=== PATIENT | female | born 1995 | race Caucasian/White ===

== ENCOUNTER 2020-06-17 15:01 | Emergency (ER) | payer MEDICAID, SELFPAY ==
--- NOTE | ~2020-06-17 | US_ITS ---
EXAMINATION: ULTRASOUND PELVIC, COMPLETE CLINICAL INFORMATION: Right upper quadrant pain. Suprapubic tenderness. COMPARISON: None. TECHNIQUE: Transvaginal: Used to better visualize pelvic structures Transabdominal: Not adequate for visualization Spectral Doppler and color Doppler exam was utilized. LMP: 05/08/2020. Gestational age by LMP is 5 weeks 5 days. KELLY 02/12/2021 FINDINGS: UTERUS: There is an intrauterine gestational sac. There is a yolk sac present but no pole. Mean gestational sac diameter 0.6 cm. This correlates to dating of 5 weeks 1 day. There is likely normal variant of arcuate uterus. Uterus measures 8.3 x 4.3 x 5.4 cm. ADNEXA: Ovarian vascularity:Doppler demonstrates both arterial and venous vascular flow in the right and left ovary. No evidence of ovarian torsion. Right Ovary: Corpus luteum cyst in the right ovary measuring 1.3 cm. The right ovary measures 3.7 x 2.3 x 2.1 cm Left Ovary: 1.6 x 1.7 x 1.4 cm Cul-de-sac: No Fluid US/US OB transvaginal IMPRESSION: There is an intrauterine gestational sac with yolk sac but no pole seen. Mean gestational sac 0.6 cm correlates to dating of 5 weeks 1 day. Consider follow-up ultrasound in 2-3 weeks.
--- NOTE | ~2020-06-17 | US_ITS ---
EXAMINATION: ULTRASOUND PELVIC, COMPLETE CLINICAL INFORMATION: Right upper quadrant pain. Suprapubic tenderness. COMPARISON: None. TECHNIQUE: Transvaginal: Used to better visualize pelvic structures Transabdominal: Not adequate for visualization Spectral Doppler and color Doppler exam was utilized. LMP: 05/08/2020. Gestational age by LMP is 5 weeks 5 days. KELLY 02/12/2021 FINDINGS: UTERUS: There is an intrauterine gestational sac. There is a yolk sac present but no pole. Mean gestational sac diameter 0.6 cm. This correlates to dating of 5 weeks 1 day. There is likely normal variant of arcuate uterus. Uterus measures 8.3 x 4.3 x 5.4 cm. ADNEXA: Ovarian vascularity:Doppler demonstrates both arterial and venous vascular flow in the right and left ovary. No evidence of ovarian torsion. Right Ovary: Corpus luteum cyst in the right ovary measuring 1.3 cm. The right ovary measures 3.7 x 2.3 x 2.1 cm Left Ovary: 1.6 x 1.7 x 1.4 cm Cul-de-sac: No Fluid US/US OB <= 14 weeks fetus IMPRESSION: There is an intrauterine gestational sac with yolk sac but no pole seen. Mean gestational sac 0.6 cm correlates to dating of 5 weeks 1 day. Consider follow-up ultrasound in 2-3 weeks.
[2020-06-17 16:31] VITALS: BP 106/58; PULSE 64; RESP 18; TEMP 36.9; O2SAT 99; BMI 26.5
[2020-06-17 18:26] LABS: MANUAL DIFF FLAG NO
[2020-06-17 18:30] LABS: Basophils Absolute Auto 0.1 X10*3/uL (0.0-0.2); Basophils Percent Auto 0.6 % (0-2); Eosinophils Absolute Auto 0.1 X10*3/uL (0.0-0.4); Eosinophils Percent Auto 0.9 % (0-4); Hematocrit 40.6 % (37-47); Hemoglobin 13.7 g/dl (12.0-16.0); Imm Gran Abs Auto 0.02 X10*3/uL (0.00-0.03); Imm Gran Pct Auto 0.2 % (0.0-0.4); Lymphocytes Absolute Auto 2.6 X10*3/uL (1.2-4.9); Lymphocytes Percent Auto 30.9 % (20-40); Mean Corpuscular HGB Conc 33.7 g/dl (31.0-35.0); Mean Corpuscular Hemoglobin 31.5 pg (27.0-33.0); Mean Corpuscular Volume 93.3 fL (80-98); Mean Platelet Volume 10.3 fL (9.4-12.3); Monocytes Absolute Auto 0.6 X10*3/uL (0.1-1.2); Monocytes Percent Auto 7.2 % (2-11); Neutrophils Absolute Auto 5.1 X10*3/uL (2.0-8.3); Neutrophils Percent Auto 60.2 % (45-73); Platelet Count 292 X10*3/uL (160-400); Red Blood Count 4.35 X10*6/uL (4.20-5.50); Red Cell Distribution Width 13.1 % (11.0-16.0); White Blood Count 8.5 X10*3/uL (4.8-10.8)
[2020-06-17 18:31] LABS: Glucose Urine UA NEG (NEG); Leukocyte Esterase Urine NEG (NEG); Nitrite Urine NEG (NEG); PH 5.5 (5.0-8.0); Specific Gravity - Urine >= 1.030 (1.005-1.025); Urine Blood NEG (NEG); Urine Ketones NEG (NEG); Urine Protein NEG (NEG-TRACE)
[2020-06-17 18:32] LABS: Appearance Urine CLEAR; Color Urine YELLOW; UPreg QC Valid YES; Urine Pregnancy POSITIVE (NEGATIVE)
[2020-06-17 18:47] LABS: Anion Gap 12 (12-20); Blood Urea Nitrogen 12 mg/dL (9-16); Calcium 8.9 mg/dL (8.4-10.2); Carbon Dioxide 24 mmol/L (22-29); Chloride 104 mmol/L (96-108); Creatinine Clr Calc Pharmacy 121.6; Estimated Glomerular Filt Rate > 60; Glucose Random 85 mg/dL (60-115); Potassium 3.9 mmol/L (3.3-5.1); Sodium 136 mmol/L (135-145)
--- NOTE | 2020-06-17 21:41 | ED_ITS ---
HPI - Female Genitourinary General Chief complaint: Urogenital-Female Stated complaint: ABD PAIN Time Seen by Provider: 06/17/20 21:23 Source: patient Mode of arrival: ambulatory Limitations: no limitations History of Present Illness HPI Narrative: 25-year-old female who presents emergency department for evaluation lower abdominal pain and vaginal bleeding. The patient is a , LMP 05/08/2020 who states that her menstrual period was late. She checked a home test was positive. She states that on Monday, 4 days prior to evaluation, she noted some pinkish blood on the toilet paper after she urinated. She states that she has been experiencing lower abdominal pain for approximately 3 weeks. She describes this as an intermittent, cramping/dull pain which is mild to moderate in intensity. She points to her right lower quadrant and suprapubic area when asked to localize his pain. She states that she made an appointment with the [facility] for OBGYN care and they advised her to go to the emergency department since she was having abdominal pain. In the emergency department she states that she is having pain but it is mild in intensity. She denies any vaginal bleeding or vaginal discharge. The patient states that she had 1 miscarriage at 5 months and that during her last which was 9 months prior, she was being monitored for hypertension but did not have preeclampsia. Related Data Allergies Allergy/AdvReac Type Severity Reaction Status Date / Time No Known Allergies Allergy Unverified 01/02/20 16:26 Review of Systems Review of Systems: Yes all other systems are reviewed and are negative PMFSH Past Medical History [facility] Narrative: G4, P2, LMP 05/08/2020, 5 weeks 5 days by dates, no chronic medical problems. The patient states that she occasionally smokes cigarettes, she denies alcohol use. She states she smokes marijuana daily. Social History Social History Advance Directives: No Advance Directives Information Provided: No Physical Exam Vital Signs: Vital Signs: Last Vital Signs Temp 98.4 F 06/17/20 16:31 Pulse 77 06/17/20 22:12 Resp 16 06/17/20 22:12 BP 115/77 06/17/20 22:12 Pulse Ox 99 06/17/20 22:12 Body Mass Index 26.5 Const: General: cooperative and healthy appearing Orientation/consciousness: oriented to person and oriented to place Limitations: no limitations HENMT: Head: Yes normal to inspection, Yes normocephalic and Yes atraumatic Ears: external ears normal General nose exam: Normal external nose present Face and sinus: Yes normal facial exam Mouth: Normal oral and palatal mucosa present Throat: Yes posterior oropharynx normal Eyes: Periorbital: periorbital findings normal Eyelids: Yes eyelids normal Conjunctivae: conjunctivae normal Sclerae: sclerae normal Corneas: corne as normal Pupils: Equal, round and reactive pupils present Direct Ophthalmoscopy: normal light reflex Neck: Neck: Yes full ROM, Yes no lymphadenopathy, Yes no meningeal signs, Yes trachea midline and Yes supple Chest: Chest palpation & inspection: normal inspection of the chest and normal palpation of entire chest wall Resp: Effort & Inspection: normal respiratory effort and able to speak in complete sentences Auscultation: clear to auscultation bilaterally Cardio: Rate: regular rate Rhythm: regular rhythm Heart sounds: S1 normal heart sound present, S2 normal heart sound present and no murmurs GI: Inspection: Yes normal to inspection Palpation (GI): Soft to palpation, Tenderness to palpation present (GI) in the RLQ (Mild) and suprapubicly (Mild), no guarding, not rigid and No hepatosplenomegaly present : General: Yes no CVA tenderness Back/Spine/Pelvis: Back: no CVA tenderness Cervical Spine: normal cervical lordosis Thoracic/Lumbar Spine: thoracic and lumbar spine normal to inspection Skin: Lesions: no lesions Rashes: no rashes Wounds: no wounds Neuro: General: oriented to person, oriented to place and no meningeal signs Cranial nerves: Yes Equal, round and reactive pupils present Cognition (Neuro): normal cognition Motor exam (neuro): 5/5 motor strength present throughout Extrem: General: Yes normal to inspection and Yes full ROM Psych: Appearance: well kempt Mental Status: mental status grossly normal Speech and movement: Normal speech and movement present Affect: normal affect Attitude: cooperative Thought process: Normal thought process present Thought content: Normal thought content present Course Course Course Narrative: 25-year-old female, G4, P3, LMP 05/08/2020, 5 weeks, 5 days by dates, who presents emergency department for evaluation of lower abdominal pain x3 weeks and possible brief episode of vaginal bleeding 4 days prior. Examination did reveal mild suprapubic and left lower quadrant tenderness. Laboratory evaluation revealed normal CBC and comprehensive metabolic panel. Urine test was positive. Urinalysis was negative. I did add a quantitative beta HCG to the patient's labs. Given her symptoms, I did order a ultrasound to rule out ectopic on this patient. 2243: Patient's laboratory evaluation was unremarkable. The patient's urine test was positive and her quantitative beta-hCG was 2879. The patient's ultrasound did reveal a yolk sac in the uterus with no evidence of an ectopic . I did discuss these findings with the patient. The patient was discharged home with printed instructions on early . She was advised to follow-up with the [facility] and return to the emergency department if her symptoms get worse or she develops any symptoms that are concerning to her. MDM - Female Genitourinary Lab Data Result diagrams: 06/17/20 18:18 06/17/20 18:07 Labs: Lab Results 06/17/20 06/17/20 06/17/20 Range/Units 18:07 18:07 18:18 WBC 8.5 (4.8-10.8) X10*3/uL RBC 4.35 (4.20-5.50) X10*6/uL Hgb 13.7 (12.0-16.0) g/dl Hct 40.6 (37-47) % MCV 93.3 (80-98) fL MCH 31.5 (27.0-33.0) pg MCHC 33.7 (31.0-35.0) g/dl RDW 13.1 (11.0-16.0) % Plt Count 292 (160-400) X10*3/uL MPV 10.3 (9.4-12.3) fL Immature Gran % (Auto) 0.2 (0.0-0.4) % Neut % (Auto) 60.2 (45-73) % Lymph % (Auto) 30.9 (20-40) % [place] % (Auto) 7.2 (2-11) % Eos % (Auto) 0.9 (0-4) % Baso % (Auto) 0.6 (0-2) % Lymph # (Auto) 2.6 (1.2-4.9) X10*3/uL Payette # (Auto) 0.6 (0.1-1.2) X10*3/uL Eos # (Auto) 0.1 (0.0-0.4) X10*3/uL Baso # (Auto) 0.1 (0.0-0.2) X10*3/uL Abs Immat Gran (auto) 0.02 (0.00-0.03) X10*3/uL Absolute Neuts (auto) 5.1 (2.0-8.3) X10*3/uL Absolute Nucleated RBC 0.000 (0.0-0.012) X10*3/uL Nucleated RBC % (auto) 0.0 (0.0-0.2) /100WBC Hold Blue Top SEE NOTE Sodium 136 (135-145) mmol/L Potassium 3.9 (3.3-5.1) mmol/L Chloride 104 (96-108) mmol/L Carbon Dioxide 24 (22-29) mmol/L Anion Gap 12 (12-20) BUN 12 (9-16) mg/dL Creatinine 0.66 (0.5-1.4) mg/dL Estim Creat Clear Calc 121.6 Estimated GFR > 60 Random Glucose 85 (60-115) mg/dL Calcium 8.9 (8.4-10.2) mg/dL Beta HCG, Quant 2879 mIU/mL Urine Color Urine Appearance Urine pH (5.0-8.0) Ur Specific [place] (1.005-1.025) Urine Protein (NEG-TRACE) MG/DL Urine Glucose (UA) (NEG) MG/DL Urine Ketones (NEG) MG/DL Urine Blood (NEG) Urine Nitrite (NEG) Ur Leukocyte Esterase (NEG) Urine Test (NEGATIVE) 06/17/20 06/17/20 Range/Units 18:18 18:18 WBC (4.8-10.8) X10*3/uL RBC (4.20-5.50) X10*6/uL Hgb (12.0-16.0) g/dl Hct (37-47) % MCV (80-98) fL MCH (27.0-33.0) pg MCHC (31.0-35.0) g/dl RDW (11.0-16.0) % Plt Count (160-400) X10*3/uL MPV (9.4-12.3) fL Immature Gran % (Auto) (0.0-0.4) % Neut % (Auto) (45-73) % Lymph % (Auto) (20-40) % [place] % (Auto) (2-11) % Eos % (Auto) (0-4) % Baso % (Auto) (0-2) % Lymph # (Auto) (1.2-4.9) X10*3/uL Payette # (Auto) (0.1-1.2) X10*3/uL Eos # (Auto) (0.0-0.4) X10*3/uL Baso # (Auto) (0.0-0.2) X10*3/uL Abs Immat Gran (auto) (0.00-0.03) X10*3/uL Absolute Neuts (auto) (2.0-8.3) X10*3/uL Absolute Nucleated RBC (0.0-0.012) X10*3/uL Nucleated RBC % (auto) (0.0-0.2) /100WBC Hold Blue Top Sodium (135-145) mmol/L Potassium (3.3-5.1) mmol/L Chloride (96-108) mmol/L Carbon Dioxide (22-29) mmol/L Anion Gap (12-20) BUN (9-16) mg/dL Creatinine (0.5-1.4) mg/dL Estim Creat Clear Calc Estimated GFR Random Glucose (60-115) mg/dL Calcium (8.4-10.2) mg/dL Beta HCG, Quant mIU/mL Urine Color YELLOW Urine Appearance CLEAR Urine pH 5.5 (5.0-8.0) Ur Specific [place] >= 1.030 H (1.005-1.025) Urine Protein NEG (NEG-TRACE) MG/DL Urine Glucose (UA) NEG (NEG) MG/DL Urine Ketones NEG (NEG) MG/DL Urine Blood NEG (NEG) Urine Nitrite NEG (NEG) Ur Leukocyte Esterase NEG (NEG) Urine Test POSITIVE H (NEGATIVE)
[2020-06-17 22:11] LABS: HCG Quantitative 2879 mIU/mL
[2020-06-17 22:12] VITALS: BP 115/77; PULSE 77; RESP 16; O2SAT 99
== END 2020-06-17 22:50 | disposition home or self-care (01) ==
PROVIDERS: Emergency Provider Emergency Medicine Emergency Medical Services
DX: O26.91 Pregnancy related conditions, unspecified, first trimester (principal); Z3A.01 Less than 8 weeks gestation of pregnancy
CPT/HCPCS: 36415; 76801; 76817; 80048; 81003; 81025; 84702; 85025; 99283; 99284

== ENCOUNTER 2022-08-18 12:48 | Outpatient (REF) | payer MEDICAID, SELFPAY ==
--- NOTE | ~2022-08-18 | XR_ITS ---
EXAMINATION: XR CHEST CLINICAL INFORMATION: Posterior chest pain COMPARISON: None available. TECHNIQUE: 2 views of the chest were obtained. FINDINGS: No significant abnormality is noted involving the heart, lungs, mediastinum, bony thorax or soft tissues. XR/XR chest 2V IMPRESSION: Unremarkable examination.
== END 2022-08-18 12:49 | disposition home or self-care (01) ==
LOC: HO.HHCX 12:48
PROVIDERS: Referring Provider Emergency Medicine; Visit Provider Emergency Medicine
DX: R07.89 Other chest pain (principal)
CPT/HCPCS: 71046

== ENCOUNTER 2022-09-30 15:59 | Outpatient (REF) | payer MEDICAID, SELFPAY ==
--- NOTE | ~2022-09-30 | XR_ITS ---
EXAMINATION: XR HAND, RIGHT CLINICAL INFORMATION: Pain with injury. COMPARISON: September 27, 2015 TECHNIQUE: PA, lateral, and oblique views of the right hand. FINDINGS: There is a nondisplaced linear fracture through the right fifth metacarpal bone which is not intra-articular. There is associated soft tissue swelling seen. No dislocation is evident. Joint spaces are maintained. No significant degenerative change is seen. XR/XR hand RT min 3V IMPRESSION: Nondisplaced oblique fracture right fifth metacarpal.
== END 2022-09-30 16:00 | disposition home or self-care (01) ==
LOC: HO.HHCX 15:59
PROVIDERS: Visit Provider Registered Nurse
DX: M79.641 Pain in right hand (principal)
CPT/HCPCS: 73130

== ENCOUNTER 2022-10-11 13:14 | Outpatient (REF) | payer MEDICAID, SELFPAY ==
--- NOTE | ~2022-10-11 | US_ITS ---
EXAMINATION: US DIAGNOSTIC ULTRASOUND BREAST, BILATERAL CLINICAL INFORMATION: 27-year-old with focal dermatologic finding lower inner left breast and lower inner right breast, respectively. No prior breast imaging. COMPARISON: None available. TECHNIQUE: Ultrasound of both breasts is targeted to the areas of clinical concern. Grayscale imaging and color Doppler are performed without and with harmonics. Patient is able to point to the areas of concern at time of imaging. FINDINGS: Right: There is an incidental simple cyst under 5 mm, 3:00 position 7 cm from nipple. There is no solid mass or architectural abnormality. No intradermal lesion, skin thickening, or edema tracking in soft tissue planes. No hyperemia. Left: There is a small oval hypoechoic area 7:00 position 8 cm from nipple corresponding to the clinical concern. The overall dimensions are 4 x 3 mm. There is no subdermal extension. No associated color flow. No edema tracking in soft tissue planes. No breast cystic or solid mass or architectural abnormality. Results and management options are discussed with the patient at time of visit. US/US breast LT limited IMPRESSION: Right: -Incidental simple cyst 3:00 position under 5 mm. -No intradermal lesion demonstrated. Left: -Small oval intradermal lesion at site of clinical concern measuring approximately 4 x 3 mm possibly sebaceous cyst. No surrounding hyperemia or subdermal extension. ASSESSMENT: BI-RADS 2: Benign RECOMMENDATION: Patient should be managed based on the clinical impression. If clinically indicated, further evaluation may be considered with surgical consult. Decision to proceed with biopsy should be based on clinical grounds and degree of clinical concern. This patient's information was entered into a reminder system with a target due date for their next mammogram.
== END 2022-10-11 13:15 | disposition home or self-care (01) ==
LOC: HO.MAMMO 13:14
PROVIDERS: PCP Emergency Medicine; Visit Provider Emergency Medicine
DX: N63.25 Unspecified lump in the left breast, overlapping quadrants (principal); L98.8 Other specified disorders of the skin and subcutaneous tissue
CPT/HCPCS: 76642

== ENCOUNTER 2022-10-25 11:25 | Outpatient (REF) | payer MEDICAID, SELFPAY ==
--- NOTE | ~2022-10-25 | XR_ITS ---
EXAMINATION: XR HAND, RIGHT CLINICAL INFORMATION: Pain in unspecified hand COMPARISON: 09/30/2022 TECHNIQUE: PA, lateral, and oblique views of the right hand. FINDINGS: There is stable osseous alignment with callus formation in the oblique fracture in the fifth metacarpal bone. No intra-articular extension visualized. No new fractures. XR/XR hand RT min 3V IMPRESSION: Stable osseous alignment with callus formation in the oblique fracture in the fifth metacarpal bone.
== END 2022-10-25 11:26 | disposition home or self-care (01) ==
LOC: HO.HOSX 11:25
PROVIDERS: Visit Provider Physician Assistant
DX: S62.356D Nondisplaced fracture of shaft of fifth metacarpal bone, right hand, subsequent encounter for fracture with routine healing (principal)
CPT/HCPCS: 73130; 99204

== ENCOUNTER 2022-10-25 11:27 | Outpatient (AMB) | payer MEDICAID, SELFPAY ==
--- NOTE | 2022-10-25 11:41 | A.OFFVIS_ITS ---
Intake Intake Visit Reasons: FC- Rt metacarpal Fx Intake Note: Celina is a 27 year old right hand dominant female who presents today for a fracture care appointment for her right metacarpal fx, DOI 09/28/22. Patient reports when she was upset she hit the wall and she felt like she hit concrete or metal. She states that it feels sore but she is able to move her hand normally, also when she accidentally hits her right hand it causes her a lot of pain. Having off and on tingling. Allergies No Known Allergies Allergy (Verified 10/25/22 11:46) HPI FC- Rt metacarpal Fx HPI Details 27-year-old right hand dominant female who presents in the office today, as a new patient, for an evaluation of right hand pain. The patient reports on 09/28/2022 she was upset and hit a wall. She states she felt that she hit concrete or metal. She reports it is sore, but she is able to move her hand normally. She reports it has caused her a lot of pain. She confirms intermittent tingling. [facility] Social History (Updated 10/25/22 @ 11:47 by Kanika Eugene) Alcohol intake: former Patient Tobacco Use Status: Former Tobacco user Current occupational status: unemployed Current occupation: right hand dominant Review of Systems Const All systems reviewed & are unremarkable except as noted in HPI and below Physical Exam Const General: cooperative, healthy appearing, comfortable, no acute distress, well developed and alert Orientation/consciousness: patient oriented x3 HEENT Head: Yes normal to inspection, Yes normocephalic and Yes atraumatic Eyes General: appearance normal, both eyes and all related structures Resp Effort & Inspection: normal respiratory effort and able to speak in complete sentences Cardio Rate: regular rate Peripheral pulses: Peripheral pulses 2+ throughout GI Palpation (GI): Soft to palpation Skin Lesions: no lesions Rashes: no rashes Neuro General: patient oriented x3 Extrem Other: Right hand: Normal to inspection. No ecchymosis, erythema, or edema. Able to perform full finger flexion, extension, abduction, adduction, finger cross, okay sign, and thumbs up without deficit. Able to make a closed fist. Slight tenderness to palpation over the shaft of the 5th metacarpal. Sensation intact. Capillary refill is brisk. Radial pulse intact. Office Procedures Fracture Care Fracture Billing Code: Fracture Billing Code Assessment & Plan Assessment & Plan (1) Nondisp fx shaft fifth metacarpal bone right hand w/routine heal: Code(s): S62.356D - Nondisplaced fracture of shaft of fifth metacarpal bone, right hand, subsequent encounter for fracture with routine healing Plan Ms. Vladislav Zimmerman is a 27-year-old right hand dominant female who presents in the office today, as a new patient, for an evaluation of right hand pain. The patient reports on 09/28/2022 she was upset and hit a wall. She states she felt that she hit concrete or metal. She reports it is sore, but she is able to move her hand normally. She reports it has caused her a lot of pain. She confirms intermittent tingling. I educated the patient the healing time of a hand fracture of 6-8 weeks. She should not lift weight above a cellphone or coffee cup. She will return to normal activities as tolerated. Follow up will be PRN, or sooner if needed. X-rays of the right hand which were obtained while in the office today and were reviewed by me, Emma Perez PA-C, revealed routine healing of the 5th metacarpal shaft fracture. Orders: Orders XR hand RT min 3V Today M79.643 - Pain in unspecified hand Patient Instructions: Scribed for Emma Perez PA-C by Melissa Reyes medical csr, on 10/25/2022 at 11:29 am, EST. Your attestation Coding Level of Care Code New Pt Level 4 (09284) Diagnoses Nondisp fx shaft fifth metacarpal bone right hand w/routine heal S62.356D CPT Codes Fracture Care - Fracture Billing Code: Fracture Billing Code ([id number])
== END 2022-10-25 12:09 | disposition home or self-care (01) ==
PROVIDERS: PCP Emergency Medicine; Visit Provider Physician Assistant
DX: S62.356A Nondisplaced fracture of shaft of fifth metacarpal bone, right hand, initial encounter for closed fracture (principal); W22.09XA Striking against other stationary object, initial encounter
CPT/HCPCS: 99204

== ENCOUNTER 2023-06-03 14:07 | Emergency (ER) | payer MEDICAID, SELFPAY ==
--- NOTE | ~2023-06-03 | XR_ITS ---
EXAMINATION: XR HAND/WRIST, LEFT CLINICAL INFORMATION: Pain COMPARISON: None TECHNIQUE: PA, lateral, and oblique views of the left hand and wrist. FINDINGS: The bones and soft tissues are normal. No fracture. Alignment is anatomic. Joint spaces are maintained. No erosions or soft tissue calcifications. XR/XR hand wrist LT IMPRESSION: No fracture or dislocation. No significant osseous changes to explain patient's pain symptoms.
[2023-06-03 14:41] VITALS: BP 126/54; PULSE 66; RESP 18; TEMP 36.1; O2SAT 100; BMI 28.8
--- NOTE | 2023-06-03 14:42 | ED_ITS ---
HPI - Extremity Injury (Upper) General Chief Complaint: Extremity Injury, Upper Stated Complaint: left hand pain Time Seen by Provider: 06/03/23 16:00 Source: patient, RN notes reviewed and old records reviewed History of Present Illness HPI narrative: 28-year-old female with no significant past medical history presenting to the ED complaining of acute on chronic left hand and wrist pain times a few months. States noted increasing swelling yesterday. Reports pain is worse at night and 1st thing in the morning with intermittent numbness/tingling. Denies known injury/trauma or fall, fever/chills. 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 complaint: injury to: left Related Data Previous Rx's Medication Instructions Recorded acetaminophen 500 mg tablet 500 mg PO Q6H PRN fever or pain 06/03/23 (Tylenol Extra Strength) #14 tabs naproxen 500 mg tablet 500 mg PO BID PRN pain 10 days #20 06/03/23 tabs Allergies Allergy/AdvReac Type Severity Reaction Status Date / Time No Known Allergies Allergy Verified 06/03/23 14:46 Review of Systems Review of Systems: Constitutional: No Fever, No Chills ENT/Mouth: No Ear Pain, No Nasal Congestion, No sore throat, No Rhinorrhea, No Swallowing Difficulty Cardiovascular: No Chest Pain, No SOB Respiratory: No Cough Gastrointestinal: No Nausea, No Vomiting, No Abdominal pain Musculoskeletal: + joint pain, No Myalgias, + Joint Swelling Skin: No Skin Lesions, No rash Neuro: No Weakness, No Numbness, + Paresthesias Yes all other systems are reviewed and are negative Constitutional: Constitutional: Reports as per [facility] Past Medical History Attestation statement: The following information was validated with the patient. Source: old records reviewed Social History Social History Alcohol intake: former Patient Tobacco Use Status: Former Tobacco user Current occupational status: unemployed Current occupation: right hand dominant Physical Exam Vital Signs: Vital Signs: Last Vital Signs Temp 97 F 06/03/23 14:41 Pulse 66 06/03/23 14:41 Resp 18 06/03/23 14:41 BP 126/54 L 06/03/23 14:41 Pulse Ox 100 06/03/23 14:41 O2 Del Method Room Air 06/03/23 14:41 BMI result Body Mass Index 28.8 Const: General: cooperative, healthy appearing and no acute distress Orientation/consciousness: patient oriented x3 Limitations: no limitations HEENT: Head: Yes normal to inspection and Yes atraumatic Ears: hearing grossly normal bilaterally General nose exam: Normal external nose present Face and sinus: Yes normal facial exam Eyes: General: appearance normal, both eyes and all related structures EOM: EOMs intact bilaterally Neck: Neck: Yes normal visual inspection and Yes no meningeal signs Resp: Effort & Inspection: normal respiratory effort and no respiratory distress Cardio: Rate: regular rate Skin: Rashes: no rashes Wounds: no wounds Neuro: General: patient oriented x3, tone normal and no meningeal signs Cranial nerves: Yes CN's II-XII intact bilaterally Gait exam (Neuro): Normal gait present Extrem: Other: Left hand/wrist without noted deformity. No erythema/warmth or crepitus. + diffusely tender to palpation greatest to ulnar aspect. Negative Phalen's and Tinel's sign. Neurovascularly intact. Full range of motion intact. No snuffbox tenderness General: Yes normal to inspection Course Course Course Narrative: RME: 28 year-old F w/no sig PMHx presenting to the ED c/o left hand pain x few months w/ swelling noted yesterday. Admits to intermittent numbness/tingling. Worse when sleeping. denies injury/fall, fever. 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 1610--XR hand wrist LT IMPRESSION: No fracture or dislocation. No significant osseous changes to explain patient's pain symptoms. Results discussed with patient including worrisome signs and symptoms and strict return precautions, and when to return to the emergency department. They verbalized understanding and feel safe for discharge at this time. Medical Decision Making Medical Decision Making MDM Narrative: 28-year-old female with no significant past medical history presenting to the ED complaining of acute on chronic left hand and wrist pain times a few months. On exam vital signs stable, NAD, nontoxic appearing. Concern for sprain vs occult fracture vs tendinopathy. No evidence of septic joint/arthritis. Plan: X-rays Please refer to course for remaining clinical decision making, interpretation of labs/imaging results, and discussions with consultants and/or family members. Differential Diagnosis Differential Diagnoses: The differential diagnosis associated with the pres entation includes As above Independent Interpretation I performed an independent interpretation of an: Plain X-Ray Radiology Impression Discussion of test interpretation with radiology: I have reviewed the radiologist's reading. External Record Review External record reviewed: Inpatient record, Office record, Outpatient record, Prior outpatient labs, Prior outpatient radiology, Primary care record and Outside ED record Tests considered The following testing was considered but not selected: As above Prescription Management I considered prescription management with: Pain Medication Discharge Plan Discharge Clinical Impression: Pain in left wrist Patient Disposition: Home, Self-Care Instructions: Wrist Injury (ED), Arthralgia (ED) Additional Instructions: Your x-ray is unremarkable Wear wrist splint as needed for comfort and stability Ice and elevate Naproxen as anti-inflammatory/pain medication, take with food In addition take Tylenol Follow-up with your doctor as well as Orthopedics as needed Prescriptions: New acetaminophen [Tylenol Extra Strength] 500 mg tablet 500 mg PO Q6H PRN (Reason: fever or pain) Qty: 14 0RF naproxen 500 mg tablet 500 mg PO BID PRN (Reason: pain) 10 Days Qty: 20 0RF Referrals: [facility] [facility] [Provider Group] (as needed) [facility] [Primary Care Provider] - 5 days Stand Alone Forms: Work/School Release Discharge Date/Time: 06/03/23 16:47
--- OUTSIDE RECORDS SUMMARY | 2023-06-03 16:23 | XMS_ITS | Continuity of Care Document ---
Author Name Unknown Organization [facility] Address [address] [place] [id number]- Care Team Providers Care All Source Analyst Name Role Phone Yvette MONROY, Wei Martin Primary Care Physician Encounter [facility] [place] Date(s): 10/15/20 - 11/19/[address] [address] Attending Physician: Not on Staff, Attending MD Allergies, Adverse Reactions, Alerts Substance Reaction Severity Status NKA Active Immunizations Given and Recorded Vaccine Date Status Refusal Reason Measles/Mumps/Rubella Virus Vaccine 1 09/26/19 Giv en Measles/Mumps/Rubella Virus Vaccine 09/08/13 Given tetanus/diphtheria/pertussis, acel(Tdap) 07/09/19 Given tetanus/diphtheria/pertussis, acel(Tdap) 07/02/13 Given influenza virus vaccine, inactivated 01/31/13 Give n 1Early/Late Reason: Other : na Medications aspirin 81 mg oral delayed release tablet 2 tablet = 162 mg, By Mouth, Daily, # 60 tablet, 7 Refills, Maintenance, 08/14/20 15:50:00 EDT, CR Tablet, [facility], Partial fill upon patient request if the prescription is fora schedule II opioid drug., 161, cm, 08/14/20 13:31... Start Date: 08/14/20 Status: Ordered doxylamine 25 mg oral tablet 1 tablet = 25 mg, By Mouth, Daily, PRN Insomnia, take 1-2 tablet 15-30min before bed, # 30 tablet, 0 Refills, Acute 11/30/20 9:52:00 EDT, 10/29/20 9:52:00 EDT, Tablet, [facility],do not substitute diphenhydramine, 161, cm, ... Start Date: 10/29/20 Stop Date: 11/30/20 Status: Ordered Multivitamins with Folic Acid 1 mg oral tablet 1 tablet, By Mouth, Daily, # 90 tablet, 3 Refills, Maintenance, 07/08/20 17:11:00 EDT, Tablet, [facility], Partial fill upon patient request if the prescription is for a schedule II opioid drug., 1 tablet By Mouth Daily, 160, cm, 0... Start Date: 07/08/20 Status: Ordered Problem List Condition Effective Dates Status Health Status Inform ant H/O Anxiety and depression(C onfirmed) 1, 2 Active H/O Asthma(Confirmed) 3 Active Vaginal bleeding in (Confirmed) Active Depression affecting (Confirmed) Active Difficulty sleeping(Confirmed) Active Marijuana use(Confirmed) Active H/O delivery(Confirmed) 2011 Active Request for sterilization(Confirmed) Active Susceptible to varicella (no n-immune), currently (Confirmed) Active 1Currently established with counseling once weekly. Currently feels stable, not on medications. 2Pt reports at this OBI visit that she has hx of MHS for anxiety and depression but is not longer engaged at present. 3not managed at present 4History of twin delivery/IUFD at 20+2, TTTS. Social History Social History Type Response Smoking Status Former smoker, quit more than 30 days ago; Other: States quit 1-2 years ago prior to last ; entered on: 07/08/20 Sex
--- OUTSIDE RECORDS SUMMARY | 2023-06-03 16:23 | XMS_ITS | Continuity of Care Document ---
Author Name Unknown Organization [facility] Address [address] [place] [address]- Care Team Providers Care Rubble Placer Name Role Phone Yvette MONROY, Wei Martin Primary Care Physician [place] [facility] [place] Date(s): 10/17/20 - 11/22/[address] [address] Attending Physician: Avril Thompson MD Admitting Physician: Avril Thompson MD Referring Physician: Jamia Lebron NP Allergies, Adverse Reactions, Alerts Substance Reaction Severity [...] Refills, Maintenance, 08/14/20 15:50:00 EDT, CR Tablet, [facility], Partial fill upon patient request if the prescription is fora schedule II opioid drug., 161, cm, 08/14/20 13:31... Start Date: 08/14/20 Status: Ordered doxylamine 25 mg oral tablet 1 tablet = 25 mg, By Mouth, Daily, PRN Insomnia, take 1-2 tablet 15-30min before bed, # 30 tablet, 0 Refills, Acute 11/30/20 9:52:00 EDT, 10/29/20 9:52:00 EDT, Tablet, [facility],do not substitute diphenhydramine, 161, cm, ... Start Date: 10/29/20 Stop Date: 11/30/20 Status: Ordered Multivitamins with Folic Acid 1 mg oral tablet 1 tablet, By Mouth, Daily, # 90 tablet, 3 Refills, Maintenance, 07/08/20 17:11:00 EDT, Tablet, [facility], Partial fill upon patient request if [...]
--- OUTSIDE RECORDS SUMMARY | 2023-06-03 16:23 | XMS_ITS | Continuity of Care Document ---
Author Name Unknown Organization [facility] Address [address] [place] [address]- Care Team Providers Care Vulcanizer Operator Name Role Phone MaríafloydMargo chapa DO Primary Care Physician [place] [facility] [place]24/[place] - 10/30/[address] [address] [facility] Attending Physician: Jaycob PATE, Dutch Gonzalez Referring Physician: Will ZHANG, SHEET ROCK TAPER HELPER, Ana Archuleta Allergies, Adverse Reactions, Alerts Substance Reaction Severity Status NKA Active Immunizations Given and Recorded Vaccine Date Status Refusal Reason Measles/Mumps/Rubella Virus Vaccine 1 09/26/19 Giv en Measles/Mumps/Rubella Virus Vaccine 09/08/13 Given tetanus/diphtheria/pertussis, acel(Tdap) 07/09/19 Given tetanus/diphtheria/pertussis, acel(Tdap) 07/02/13 Given influenza virus vaccine, inactivated 01/31/13 Give n 1Early/Late Reason: Other : na Medications acetaminophen 325 mg oral tablet 650 mg, By Mouth, Every 4 hours, PRN, (1-3), may give 325mg per patient preference and re-dose [id number] within 4 hours, if needed. Patient should only receive a total of 650mg of Acetaminophen every 4 hours., Refills 0, Maintenance, Pain , Mild, 0... Start Date: 09/26/19 Status: Ordered FREE STYLE LITE GLUCOSE METER FREE STYLE LITE GLUCOSE METER, See Instructions, # 1 each, Refills 0, Tot. Refills 0, Maintenance, ONE EACH;monitor glucose during , 07/09/19 15:54:00 EDT, Compound, 160, cm, 07/09/19 14:25:00 EDT, Height Start Date: 07/09/19 Status: Ordered FREE STYLE LITE LANCETS FREE STYLE LITE LANCETS, See Instructions, # 200 each, Refills 0, Tot. Refills 0, Maintenance, ICD -10 Code E119; glucose monitoring 4 times per day, TEST BLOOD GLUCOSE QID FOR GESTATIONAL DIABETES, 07/09/19 15:54:00 EDT, Compound, 160, cm, 07/09/19 1... Start Date: 07/09/19 Status: Ordered FREE STYLE LITE STRIPS FREE STYLE LITE STRIPS, See Instructions, # 200 each, Refills 0, Tot. Refills 0, Maintenance, ICD-10 CODE: E119 GLUCOSE CHECK (4) FOUR TIMES PER DAY, 07/09/19 15:54:00 EDT, Compound, 160, cm, 07/09/19 14:25:00 EDT, Height Start Date: 07/09/19 Status: Ordered ibuprofen 800 mg oral tablet 800 mg, 1, tablet, By Mouth, Every 8 hours, PRN, (4-6), may give 400mg per patient preference and re-dose with 400mg within 8 hours if needed. Patient should only receive a total of 800mg of Ibuprofen every 8 hours., Refills 0, Maintenance, Pain , M... Start Date: 09/26/19 Status: Ordered Multivitamins with Folic Acid 1 mg oral tablet 1 tablet, By Mouth, Daily, # 90 tablet, 3 Refills, Maintenance, Tablet, 1 tablet By Mouth Daily,[id number] Start Date: 01/14/13 Stop Date: 01/09/14 Status: Ordered Problem List Condition Effective Dates Status Health Status Inform ant H/O Anxiety and depression(C onfirmed) 1 Active Asthma(Confirmed) 2 Active Depression affecting (Confirmed) Active History of IUFD(Confirmed) 3 2011 Active (Confirmed) Active Hx of (PPROM)(Confirmed) 2011 Active H/O non-immune to rubella(Confirmed) 2013 Active 1Pt reports at this OBI visit that she has hx of MHS for anxiety and depression but is not longer engaged at present. 2not managed at present 3Hx of TTTS/PPROM 4Hx of IUFD/TTTS Social History Social History Type Response Smoking Status Former smoker, quit more than 30 days ago entered on: 02/22/19 Sex
--- OUTSIDE RECORDS SUMMARY | 2023-06-03 16:23 | XMS_ITS | Continuity of Care Document ---
Author Name Unknown Organization [facility] Address [address] [place] [phone]- Care Team Providers Care Pharmacists Name Role Phone Yvette MONROY, Wei Martin Primary Care Physician Encounter [facility] [place] Date(s): 12/11/20 - 02/07/[address] [address]- Attending Physician: Not on Staff, Attending MD Referring Physician: Wei Crawford NP Allergies, Adverse Reactions, Alerts Substance Reaction Severity Status NKA Active Immunizations Given and Recorded Vaccine Date Status Refusal Reason SARS-CoV-2 (COVID-19) mRNA BNT-162b2 vac 02/05/21 Given SARS-CoV-2 (COVID-19) mRNA BNT-162b2 vac 01/15/21 Given tetanus/diphtheria/pertussis, acel(Tdap) 12/11/20 Given tetanus/diphtheria/pertussis, acel(Tdap) 07/09/19 Given tetanus/diphtheria/pertussis, acel(Tdap) 07/02/13 Given Measles/Mumps/Rubella Virus Vaccine 1 09/26/19 Giv en Measles/Mumps/Rubella Virus Vaccine 09/08/13 Given influenza virus vaccine, inactivated 01/31/13 Give n 1Early/Late Reason: Other : na Medications aspirin 81 mg oral delayed release tablet 2 tablet = 162 mg, By Mouth, Daily, # 60 tablet, 7 Refills, Maintenance, 08/14/20 15:50:00 EDT, CR Tablet, [facility], Partial fill upon patient request if the prescription is fora schedule II opioid drug., 161, cm, 08/14/20 13:31... Start Date: 08/14/20 Status: Ordered Multivitamins with Folic Acid 1 mg oral tablet 1 tablet, By Mouth, Daily, # 90 tablet, 3 Refills, Maintenance, 07/08/20 17:11:00 EDT, Tablet, [facility], Partial fill upon patient request if [...] to last ; entered on: 07/08/20 Sex Female
--- OUTSIDE RECORDS SUMMARY | 2023-06-03 16:23 | XMS_ITS | Continuity of Care Document ---
Author Name Unknown Organization [facility] Address [address] [place] [address]- Care Team Providers Care Senior Account Executive Name Role Phone Margo Beyer DO Primary Care Physician Encounter [facility] Date(s): 08/26/19 - 09/25/[facility] [address] [place] [address]- [facility] Attending Physician: Admreal, Serge8 Admitting Physician: Admtr, Ar8 Referring Physician: Admtr, Ar8 Allergies, Adverse Reactions, Alerts Substance Reaction Severity Status NKA Active Immunizations Given and Recorded Vaccine Date Status Refusal Reason tetanus/diphtheria/pertussis, acel(Tdap) 07/09/19 Given tetanus/diphtheria/pertussis, acel(Tdap) 07/02/13 Given Measles/Mumps/Rubella Virus Vaccine 09/08/13 Given influenza virus vaccine, inactivated 01/31/13 Give n Medications FREE STYLE LITE GLUCOSE METER FREE STYLE [...] EDT, Height Start Date: 07/09/19 Status: Ordered Multivitamins with Folic Acid 1 mg oral tablet 1 tablet, By Mouth, Daily, # 90 tablet, 3 Refills, Maintenance, Tablet, 1 tablet By Mouth Daily,[id number] Start Date: 01/14/13 Stop Date: 01/09/14 Status: [...]
--- OUTSIDE RECORDS SUMMARY | 2023-06-03 16:23 | XMS_ITS | Continuity of Care Document ---
Author Name Unknown Organization [facility] Address [address] [place] [address]- Care Team Providers Care Warp Knit Operator Name Role Phone Margo Beyer DO Primary Care Physician Encounter [facility] [place] Date(s): 07/12/19 - 08/25/19 [facility] [address] [address]- [facility] Attending Physician: Not on Staff, Attending MD Referring Physician: Margo Beyer DO Allergies, Adverse Reactions, Alerts Substance Reaction Severity [...] Refills, Maintenance, Tablet, 1 tablet By Mouth Daily,[id number] Start Date: 01/14/13 Stop Date: 01/09/14 Status: Ordered Problem List Condition Effective Dates Status Health Status Inform ant Asthma(Confirmed) 1 Active Depression affecting (Confirmed) Active History of IUFD(Confirmed) 2 2011 Active Low-lying placenta(Confirmed) Active Hx of (PPROM)(Confirmed) 3 2011 Active H/O non-immune to rubella(Confirmed) 2013 Active 1not managed at present 2Hx of TTTS/PPROM 3Hx of IUFD/TTTS Social History Social History Type Response Smoking Status Former smoker, quit more than 30 days ago entered on: 02/22/19 Sex
--- OUTSIDE RECORDS SUMMARY | 2023-06-03 16:23 | XMS_ITS | Continuity of Care Document ---
Author Name Unknown Organization [facility] Address [address] [place] [address]- Care Team Providers Care Pigment Making Supervisor Name Role Phone Yvette MONROY, Wei Martin Primary Care Physician Encounter [facility] [place] Date(s): 09/11/20 - 01/03/[address] [address] Attending Physician: Not on Staff, Attending MD Referring Physician: Wei Crawford NP Allergies, Adverse Reactions, Alerts Substance Reaction Severity Status NKA Active Immunizations Given and Recorded Vaccine Date Status Refusal Reason tetanus/diphtheria/pertussis, acel(Tdap) 12/11/20 Given tetanus/diphtheria/pertussis, acel(Tdap) 07/09/19 Given tetanus/diphtheria/pertussis, acel(Tdap) 07/02/13 Given Measles/Mumps/Rubella Virus Vaccine 1 09/26/19 Giv en Measles/Mumps/Rubella Virus Vaccine 09/08/13 Given influenza virus vaccine, inactivated 01/31/13 Give n 1Early/Late Reason: Other : na Medications aspirin 81 mg oral delayed release tablet 2 tablet = 162 mg, By Mouth, Daily, # 60 tablet, 7 Refills, Maintenance, 08/14/20 15:50:00 EDT, CR Tablet, [facility], Partial fill upon patient request if the prescription is fora schedule II opioid drug., 161, cm, 08/14/20 13:31... Start Date: 08/14/20 Status: Ordered Multivitamins with Folic Acid 1 mg oral tablet 1 tablet, By Mouth, Daily, # 90 tablet, 3 Refills, Maintenance, 07/08/20 17:11:00 EDT, Tablet, [facility], Partial fill upon patient request [...]
--- OUTSIDE RECORDS SUMMARY | 2023-06-03 16:23 | XMS_ITS | Continuity of Care Document ---
Author Name Unknown Organization [facility] Address [address] [place] [phone]- Care Team Providers Care Coater Brake Linings Name Role Phone Yvette MONROY, Wei Martin Primary Care Physician En[place] [facility] [place] Date(s): 09/11/20 - 11/08/[address] [address] Attending Physician: Not on Staff, Attending MD [...] Refills, Maintenance, 08/14/20 15:50:00 EDT, CR Tablet, [facility], Partial fill upon patient request if the prescription is fora schedule II opioid drug., 161, cm, 08/14/20 13:31... Start Date: 08/14/20 Status: Ordered doxylamine 25 mg oral tablet 1 tablet = 25 mg, By Mouth, Daily, PRN Insomnia, take 1-2 tablet 15-30min before bed, # 30 tablet, 0 Refills, Acute 11/30/20 9:52:00 EDT, 10/29/20 9:52:00 EDT, Tablet, [facility],do not substitute diphenhydramine, 161, cm, ... Start Date: 10/29/20 Stop Date: 11/30/20 Status: Ordered Multivitamins with Folic Acid 1 mg oral tablet 1 tablet, By Mouth, Daily, # 90 tablet, 3 Refills, Maintenance, 07/08/20 17:11:00 EDT, Tablet, [facility], Partial fill upon patient request if [...]
--- OUTSIDE RECORDS SUMMARY | 2023-06-03 16:23 | XMS_ITS | Continuity of Care Document ---
Author Name Unknown Organization [facility] Address [address] [place] [address]- Care Team Providers Care Embedded Firmware Developer Name Role Phone Margo Beyer DO Primary Care Physician Encounter [facility] [place] Date(s): 10/15/19 - 11/14/[address] [address]- [facility] Allergies, Adverse Reactions, Alerts Substance Reaction Severity [...] give 325mg per patient preference and re-dose [id number] within 4 hours, if needed. Patient should only receive a total of 650mg of Acetaminophen every 4 hours., Refills 0, Maintenance, Pain , Mild, 0... Start Date: 09/26/19 Status: Ordered ibuprofen 800 mg oral tablet 800 mg, 1, tablet, By Mouth, Every 8 hours, PRN, (4-6), may give 400mg per patient preference and re-dose with 400mg within 8 hours if needed. Patient should only receive a total of 800mg of Ibuprofen every 8 hours., Refills 0, Maintenance, Pain , M... Start Date: 09/26/19 Status: Ordered Problem List Condition Effective Dates Status Health Status Inform ant H/O Anxiety and depression(C onfirmed) 1 Active Asthma(Confirmed) 2 Active Depression affecting (Confirmed) Active (Confirmed) Active H/O non-immune to rubella(Confirmed) 2013 Active 1Pt reports at this OBI visit that she has hx of MHS for anxiety and depression but is not longer engaged at present. 2not managed at present Social History Social History Type Response Smoking Status Former smoker, quit more than 30 days ago entered on: 02/22/19 Sex
--- OUTSIDE RECORDS SUMMARY | 2023-06-03 16:23 | XMS_ITS | Continuity of Care Document ---
Author Name Unknown Organization [facility] Address [address] [place] [address]- Care Team Providers Care Cornetist Name Role Phone Yvette MONROY, Wei Martin Primary Care Physician Encounter [facility] Date(s): 10/03/20 - 11/02/20 [facility] [address], [place] [address] Allergies, Adverse Reactions, Alerts Substance Reaction Severity [...] Refills, Maintenance, 08/14/20 15:50:00 EDT, CR Tablet, [facility], Partial fill upon patient request if the prescription is fora schedule II opioid drug., 161, cm, 08/14/20 13:31... Start Date: 08/14/20 Status: Ordered doxylamine 25 mg oral tablet 1 tablet = 25 mg, By Mouth, Daily, PRN Insomnia, take 1-2 tablet 15-30min before bed, # 30 tablet, 0 Refills, Acute 11/30/20 9:52:00 EDT, 10/29/20 9:52:00 EDT, Tablet, [facility],do not substitute diphenhydramine, 161, cm, ... Start Date: 10/29/20 Stop Date: 11/30/20 Status: Ordered Multivitamins with Folic Acid 1 mg oral tablet 1 tablet, By Mouth, Daily, # 90 tablet, 3 Refills, Maintenance, 07/08/20 17:11:00 EDT, Tablet, [facility], Partial fill upon patient request [...]
--- OUTSIDE RECORDS SUMMARY | 2023-06-03 16:23 | XMS_ITS | Continuity of Care Document ---
Author Name Unknown Organization [facility] Address [address] [place] [address]- Care Team Providers Care Sales Recruiting Coordinator Name Role Phone Yvette MONROY, Wei Martin Primary Care Physician Encounter [facility] [place] Date(s): 07/08/20 - 09/18/[address] [address] Attending Physician: Not on Staff, Attending MD Referring Physician: Katherine Mendenhall MD Allergies, Adverse Reactions, Alerts Substance Reaction [...] Refills, Maintenance, 08/14/20 15:50:00 EDT, CR Tablet, [facility], Partial fill upon patient request if the prescription is fora schedule II opioid drug., 161, cm, 08/14/20 13:31... Start Date: 08/14/20 Status: Ordered Multivitamins with Folic Acid 1 mg oral tablet 1 tablet, By Mouth, Daily, # 90 tablet, 3 Refills, Maintenance, 07/08/20 17:11:00 EDT, Tablet, [facility], Partial fill upon patient request if the prescription is for a schedule II opioid drug., 1 tablet By Mouth Daily, 160, cm, 0... Start Date: 07/08/20 Status: Ordered Problem List Condition Effective Dates Status Health Status Inform ant H/O Anxiety and depression(C onfirmed) 1, 2 Active H/O Asthma(Confirmed) 3 Active Depression affecting (Confirmed) Active Marijuana use(Confirmed) Active (Confirmed) Active H/O delivery(Confirmed) 2011 Active H/O non-immune to rubella(Confirmed) 2012 Active Susceptible to varicella (no n-immune), currently [...]
--- OUTSIDE RECORDS SUMMARY | 2023-06-03 16:24 | XMS_ITS | Continuity of Care Document ---
Author Name Unknown Organization [facility] ter Address [address] [place] [address]- Care Team Providers Care Plumbing Foreman Name Role Phone Margo Beyer DO Primary Care Physician Encounter [facility] [place] Date(s): 04/13/19 - 04/13/[address] [address]- [facility] Discharge Disposition: A-D/C Walkout Attending Physician: Not on Staff, Attending MD Admitting Physician: Not on Staff, Admitting MD Referring Physician: Not on Staff, Referring MD Allergies, Adverse Reactions, Alerts Substance Reaction Severity Status NKA Active Immunizations Given and Recorded Vaccine Date Status Refusal Reason Measles/Mumps/Rubella Virus Vaccine 09/08/13 Given tetanus/diphtheria/pertussis, acel(Tdap) 07/02/13 Given influenza virus vaccine, inactivated 01/31/13 Give n Medications Handheld Electric Breast Pump See Instructions, # 1 each, Maintenance, use as directed, 09/09/13 5:57:06, Compound Start Date: 09/09/13 Status: Ordered ibuprofen 600 mg oral tablet 1 tablet = 600 mg, By Mouth, Every 6 hours, # 60 tablet, 0 Refills, Maintenance, 09/09/13 5:57:01, Tablet Start Date: 09/09/13 Status: Ordered Mirena 52 mg intrauteral device 1 each = 52 mg, Intrauterine, Once, # 1 each, 0 Refills, Soft Stop, 09/09/13 5:55:42, 1 each Intrauterine Once Start Date: 09/09/13 Status: Ordered Multivitamins with Folic Acid 1 mg oral capsule See Instructions, TAKE ONE DAILY BY MOUTH, # 100 tablet, 2 Refills, Maintenance, 02/22/19 10:46:21 EST, TAKE ONE DAILY BY MOUTH Start Date: 02/22/19 Status: Ordered Multivitamins with Folic Acid 1 mg oral tablet 1 tablet, By Mouth, Daily, # 90 tablet, 3 Refills, Maintenance, Tablet, 1 tablet By Mouth Daily,[id number] Start Date: 01/14/13 Stop Date: 01/09/14 Status: Ordered Problem List Condition Effective Dates Status Health Status Inform ant H/O Anemia(Confirmed) Active H/O Anxiety and depression(C onfirmed) 1 Active Asthma(Confirmed) 2 Active H/O Bronchitis(Confirmed) 2019 Active Constipation(Confirmed) Active Frequent headaches(Confirmed) Active History of IUFD(Confirmed) 3 2011 Active Hx of (PPROM)(Confirmed) 2011 Active H/O non-immune to rubella(Confirmed) 2013 Active 1Pt reports at this OBI visit that she has hx of MHS for anxiety and depression but is not longer engaged at present. 2not managed at present 3Hx of TTTS/PPROM 4Hx of IUFD/TTTS Vital Signs Most recent to oldest [Reference Range]: 1 Oxygen Saturation [94-100 %] 100 % (04/13/19 6:23 PM) Pulse Rate [55-90 bpm] 106 bpm *H* (04/13/19 6:23 PM) Blood Pressure [90-138/55-84 mm Hg] 124/ 66mm Hg (04/13/19 6:23 PM) Respiratory Rate [16-30 br/min] 18 br/mi n (04/13/19 6:23 PM) Temperature [96.8-100.4 DegF] 98.1 DegF (04/13/19 6:23 PM) Mode of Delivery (Oxygen) Room air (04/13/19 6:23 PM) Social History Social History Type Response Smoking Status Former smoker, quit more than 30 days ago entered on: 02/22/19 Sex
--- OUTSIDE RECORDS SUMMARY | 2023-06-03 16:24 | XMS_ITS | Continuity of Care Document ---
Author Name Unknown Organization [facility] Address [address] [place] [address]- Care Team Providers Care Bricklayer Paving Brick Name Role Phone Margo Beyer DO Primary Care Physician [place] [facility] [place] Date(s): 07/23/19 - 07/30/19 [facility] [address] [address]- [facility] Attending Physician: Jossue Valle MD Referring Physician: Margo Beyer DO Allergies, [...] Refills, Maintenance, Tablet, 1 tablet By Mouth Daily,[id number] Start Date: 01/14/13 Stop Date: 01/09/14 Status: [...]
--- OUTSIDE RECORDS SUMMARY | 2023-06-03 16:24 | XMS_ITS | Continuity of Care Document ---
Author Name Unknown Organization [facility] Address [address] [place] [address]- Care Team Providers Care Special Education Science Teacher Name Role Phone Yvette MONROY, Wei Martin Primary Care Physician Encounter [facility] [place] Date(s): 09/11/20 - 12/06/[address] [address]- Attending Physician: Not on Staff, Attending MD [...] Refills, Maintenance, 08/14/20 15:50:00 EDT, CR Tablet, [facility], Partial fill upon patient request if the prescription is fora schedule II opioid drug., 161, cm, 08/14/20 13:31... Start Date: 08/14/20 Status: Ordered Multivitamins with Folic Acid 1 mg oral tablet 1 tablet, By Mouth, Daily, # 90 tablet, 3 Refills, Maintenance, 07/08/20 17:11:00 EDT, Tablet, [facility], Partial fill upon patient request [...]
--- OUTSIDE RECORDS SUMMARY | 2023-06-03 16:24 | XMS_ITS | Continuity of Care Document ---
Author Name Unknown Organization [facility] Address [address] [place] [address]- Care Team Providers Care Retail Brand Ambassador Name Role Phone Margo Beyer DO Primary Care Physician [place] [facility] [place] Date(s): 09/27/19 - 10/30/[address] [address]- [facility] Attending Physician: Not on [...] give 325mg per patient preference and re-dose [id number] within 4 hours, if needed. Patient should [...] Refills, Maintenance, Tablet, 1 tablet By Mouth Daily,[id number] Start Date: 01/14/13 Stop Date: 01/09/14 Status: Ordered Problem List Condition Effective Dates Status Health Status Inform ant H/O Anxiety and depression(C onfirmed) 1 Active Asthma(Confirmed) 2 Active Depression affecting (Confirmed) Active History of IUFD(Confirmed) 3 2011 Active (Confirmed) Active Hx of (PPROM)(Confirmed) 4 2011 Active H/O non-immune to rubella(Confirmed) 2013 [...]
--- OUTSIDE RECORDS SUMMARY | 2023-06-03 16:24 | XMS_ITS | Continuity of Care Document ---
Author Name Unknown Organization [facility] Address [address] [place] [address]- Care Team Providers Care Conveyor Technician Name Role Phone Yvette MONROY, Wei Martin Primary Care Physician Encounter [facility] [place] Date(s): 11/23/20 - 12/26/[address] [address] Attending Physician: Not on Staff, Attending [...] Refills, Maintenance, 08/14/20 15:50:00 EDT, CR Tablet, [facility], Partial fill upon patient request if the prescription is fora schedule II opioid drug., 161, cm, 08/14/20 13:31... Start Date: 08/14/20 Status: Ordered Multivitamins with Folic Acid 1 mg oral tablet 1 tablet, By Mouth, Daily, # 90 tablet, 3 Refills, Maintenance, 07/08/20 17:11:00 EDT, Tablet, [facility], Partial fill upon patient [...]
--- OUTSIDE RECORDS SUMMARY | 2023-06-03 16:24 | XMS_ITS | Continuity of Care Document ---
Author Name Unknown Organization [facility] Address [address] [place] [address]- Care Team Providers Care Steward/Stewardess Dining Room Name Role Phone Yvette MONROY, Wei Martin Primary Care Physician [id number] Date(s): 08/12/20 - 09/12/[address] [address]- Attending Physician: Not on Staff, Attending MD [...] Refills, Maintenance, 08/14/20 15:50:00 EDT, CR Tablet, [facility], Partial fill upon patient request if the prescription is fora schedule II opioid drug., 161, cm, 08/14/20 13:31... Start Date: 08/14/20 Status: Ordered Multivitamins with Folic Acid 1 mg oral tablet 1 tablet, By Mouth, Daily, # 90 tablet, 3 Refills, Maintenance, 07/08/20 17:11:00 EDT, Tablet, [facility], Partial fill upon patient request if [...]
--- OUTSIDE RECORDS SUMMARY | 2023-06-03 16:24 | XMS_ITS | Continuity of Care Document ---
Author Name Unknown Organization [facility] Address [address] [place] [address]- Care Team Providers Care Rubber Moulding Machine Operator Name Role Phone Margo Beyer DO Primary Care Physician Encounter [facility] [place] Date(s): 09/30/19 - 10/31/[address] [address]- [facility] Attending Physician: Not on Staff, Attending MD [...] give 325mg per patient preference and re-dose [id number] within 4 hours, if needed. Patient should [...] Refills, Maintenance, Tablet, 1 tablet By Mouth Daily,[id number] Start Date: 01/14/13 Stop Date: 01/09/14 Status: [...]
--- OUTSIDE RECORDS SUMMARY | 2023-06-03 16:24 | XMS_ITS | Continuity of Care Document ---
Author Name Unknown Organization [facility] Address [address] [place] [address]- Care Team Providers Care Sales Service Rep Name Role Phone Margo Beyer DO Primary Care Physician [place] [facility] [place] 09/26/19 - 12/04/[address] [address]- [facility] Attending Physician: Not on Staff, Attending MD [...] give 325mg per patient preference and re-dose [id number] within 4 hours, if needed. Patient should [...] Active (Confirmed) Active H/O non-immune to rubella(Confirmed) 2012 Active 1Pt reports at this OBI visit that she has hx of MHS for anxiety and depression but is not longer engaged at present. 2not managed at present Social History Social History Type Response Smoking Status Former smoker, quit more than 30 days ago entered on: 02/22/19 Sex
--- OUTSIDE RECORDS SUMMARY | 2023-06-03 16:24 | XMS_ITS | Continuity of Care Document ---
Author Name Unknown Organization [facility] Address [address] [place] [address]- Care Team Providers Care Cupola Tapper Name Role Phone Yvette MONROY, Wei aMrtin Primary Care Physician Encounter [facility] [place] Date(s): 10/12/20 - 11/12/[address] [address] Attending Physician: Not on Staff, Attending [...] Refills, Maintenance, 08/14/20 15:50:00 EDT, CR Tablet, [facility], Partial fill upon patient request if the prescription is fora schedule II opioid drug., 161, cm, 08/14/20 13:31... Start Date: 08/14/20 Status: Ordered doxylamine 25 mg oral tablet 1 tablet = 25 mg, By Mouth, Daily, PRN Insomnia, take 1-2 tablet 15-30min before bed, # 30 tablet, 0 Refills, Acute 11/30/20 9:52:00 EDT, 10/29/20 9:52:00 EDT, Tablet, [facility],do not substitute diphenhydramine, 161, cm, ... Start Date: 10/29/20 Stop Date: 11/30/20 Status: Ordered Multivitamins with Folic Acid 1 mg oral tablet 1 tablet, By Mouth, Daily, # 90 tablet, 3 Refills, Maintenance, 07/08/20 17:11:00 EDT, Tablet, [facility], Partial fill upon patient request if [...]
--- OUTSIDE RECORDS SUMMARY | 2023-06-03 16:24 | XMS_ITS | Continuity of Care Document ---
Author Name Unknown Organization [facility] Address [address] [place] [address]- Care Team Providers Care Station Engineer Name Role Phone Yvette MONROY, Wei Martin Primary Care Physician Encounter [facility] [place] Date(s): 03/24/21 - 04/23/[address] [address]- Attending Physician: Bernadette Ochoa Admitting Physician: AdmtrBernadette Referring Physician: AdmtrBernadette Allergies, Adverse Reactions, Alerts Substance Reaction Severity Status NKA Active Immunizations Given and Recorded Vaccine Date Status Refusal Reason influenza virus vaccine, inactivated 1 02/13/21 Gi galilea influenza virus vaccine, inactivated 01/31/13 Give n SARS-CoV-2 (COVID-19) mRNA BNT-162b2 vac 02/05/21 Given SARS-CoV-2 (COVID-19) mRNA BNT-162b2 vac 01/15/21 Given tetanus/diphtheria/pertussis, acel(Tdap) 12/11/20 Given tetanus/diphtheria/pertussis, acel(Tdap) 11/24/19 Recorded tetanus/diphtheria/pertussis, acel(Tdap) 07/09/19 Given tetanus/diphtheria/pertussis, acel(Tdap) 07/02/13 Given Measles/Mumps/Rubella Virus Vaccine 2 09/26/19 Giv en Measles/Mumps/Rubella Virus Vaccine 09/08/13 Given 1Early/Late Reason: Early/Late Reason: Accommodate D/C 2Early/Late Reason: Other : na Medications acetaminophen 325 mg oral tablet 650 mg, By Mouth, Every 4 hours, PRN, Take 2 tablets every 4-6 hours as needed for pain, # 60 tablet, Refills 0, Tot. Refills 0, Maintenance, Pain , Mild, 02/15/21 8:27:00 EDT, Route to Pharmacy Electronically, [facility], Partial... Start Date: 02/15/21 Status: Ordered aspirin 81 mg oral delayed release tablet 2 tablet = 162 mg, By Mouth, Daily, # 60 tablet, 7 Refills, Maintenance, 08/14/20 15:50:00 EDT, CR Tablet, [facility], Partial fill upon patient request if the prescription is fora schedule II opioid drug., 161, cm, 08/14/20 13:31... Start Date: 08/14/20 Status: Ordered ibuprofen 800 mg oral tablet 800 mg, 1, tablet, By Mouth, Every 8 hours, PRN, Take 1 tablet every 8 hours as needed for pain, # 30 tablet, Refills 0, Tot. Refills 0, Maintenance, Pain , Moderate, 02/15/21 8:27:00 EDT, Route to Pharmacy Electronically, [facility]... Start Date: 02/15/21 Status: Ordered Multivitamins with Folic Acid 1 mg oral tablet 1 tablet, By Mouth, Daily, # 90 tablet, 3 Refills, Maintenance, 07/08/20 17:11:00 EDT, Tablet, [facility], Partial fill upon patient request [...]
--- OUTSIDE RECORDS SUMMARY | 2023-06-03 16:24 | XMS_ITS | Continuity of Care Document ---
Author Name Unknown Organization [facility] Address [address] [place] [address]- Care Team Providers Care Automobile Travel Club Counselor Name Role Phone Yvette MONROY, Wei Martin Primary Care Physician Encounter [facility] [place] Date(s): 06/18/20 - 07/18/[address] [address] Allergies, Adverse Reactions, Alerts Substance Reaction Severity Status NKA Active Immunizations Given and Recorded Vaccine Date Status Refusal Reason Measles/Mumps/Rubella Virus Vaccine 1 09/26/19 Giv en Measles/Mumps/Rubella Virus Vaccine 09/08/13 Given tetanus/diphtheria/pertussis, acel(Tdap) 07/09/19 Given tetanus/diphtheria/pertussis, acel(Tdap) 07/02/13 Given influenza virus vaccine, inactivated 01/31/13 Give n 1Early/Late Reason: Other : na Medications Multivitamins with Folic Acid 1 mg oral tablet 1 tablet, By Mouth, Daily, # 90 tablet, 3 Refills, Maintenance, 07/08/20 17:11:00 EDT, Tablet, [facility], Partial fill upon patient request if the prescription is for a schedule II opioid drug., 1 tablet By Mouth Daily, 160, cm, 0... Start Date: 07/08/20 Status: Ordered pyridoxine 25 mg oral tablet 1 tablet = 25 mg, By Mouth, 3 times a day, PRN Nausea & Vomiting, Take with Doxylamine, # 90 tablet, 0 Refills, Acute 08/08/20 17:11:00 EDT, 07/08/20 17:11:00 EDT, [facility],Partial fill upon patient request if the prescription i... Start Date: 07/08/20 Stop Date: 08/08/20 Status: Ordered Unisom 25 mg oral tablet 1 tablet = 25 mg, By Mouth, Daily at bedtime, PRN Nausea & Vomiting, # 30 tablet, 0 Refills, Acute 08/08/20 17:12:00 EDT, 07/08/20 17:11:00 EDT, Tablet, [facility], Partial fill upon patient request if the prescription is for a kb... Start Date: 07/08/20 Stop Date: 08/08/20 Status: Ordered Problem List Condition Effective Dates Status Health Status Inform ant H/O Anxiety and depression(C onfirmed) 1, 2 Active H/O Asthma(Confirmed) 3 Active Depression affecting (Confirmed) Active Marijuana use(Confirmed) Active (Confirmed) Active H/O delivery(Confirmed) 2011 Active H/O non-immune to rubella(Confirmed) 2012 Active 1Currently established with counseling once weekly. [...]
--- OUTSIDE RECORDS SUMMARY | 2023-06-03 16:24 | XMS_ITS | Continuity of Care Document ---
Author Name Unknown Organization [facility] Address [address] [place] [address]- Care Team Providers Care Lead Die Molder Name Role Phone Yvette MONROY, Wei Martin Primary Care Physician [place] [facility] [place] Date(s): 12/11/20 - 02/28/[address] [address]- Attending Physician: Michelle Arias CNM Admitting Physician: Michelle Arias CNM Referring Physician: Wei Crawford NP Allergies, Adverse [...] 02/15/21 8:27:00 EDT, Route to Pharmacy Electronically, [facility], Partial... Start Date: 02/15/21 Status: Ordered aspirin 81 mg oral delayed release tablet 2 tablet = 162 mg, By Mouth, Daily, # 60 tablet, 7 Refills, Maintenance, 08/14/20 15:50:00 EDT, CR Tablet, [facility], Partial fill upon patient request [...] 02/15/21 8:27:00 EDT, Route to Pharmacy Electronically, [facility]... Start Date: 02/15/21 Status: Ordered Multivitamins with Folic Acid 1 mg oral tablet 1 tablet, By Mouth, Daily, # 90 tablet, 3 Refills, Maintenance, 07/08/20 17:11:00 EDT, Tablet, [facility], Partial fill upon patient request [...]
--- OUTSIDE RECORDS SUMMARY | 2023-06-03 16:24 | XMS_ITS | Continuity of Care Document ---
Author Name Unknown Organization [facility] Address [address] [place] [address]- Care Team Providers Care Telephonic Nurse Case Manager Name Role Phone MaríafloydMargo chapa DO Primary Care Physician Encounter [facility] [place] Date(s): 09/23/19 - 10/30/19 [facility] [address] [address]- [facility] Attending Physician: Not on Staff, Attending MD [...] give 325mg per patient preference and re-dose [id number] within 4 hours, if needed. Patient should [...] Refills, Maintenance, Tablet, 1 tablet By Mouth Daily,[id number] Start Date: 01/14/13 Stop Date: 01/09/14 Status: [...]
--- OUTSIDE RECORDS SUMMARY | 2023-06-03 16:24 | XMS_ITS | Continuity of Care Document ---
Author Name Unknown Organization [facility] Address [address] [place] [address]- Care Team Providers Care Corporate Logistics Manager Name Role Phone Pepito Margo BARRAGAN Primary Care Physician [place] [facility] [place] - 04/20/19 [facility] [address] [address]- [facility] Attending Physician: Not on Staff, Attending MD Referring Physician: Michelle Arias CNM Allergies, Adverse Reactions, Alerts Substance Reaction Severity [...] Refills, Maintenance, Tablet, 1 tablet By Mouth Daily,[id number] Start Date: 01/14/13 Stop Date: 01/09/14 Status: Ordered Problem List Condition Effective Dates Status Health Status Inform ant H/O Anemia(Confirmed) Active H/O Anxiety and depression(C onfirmed) 1 Active Asthma(Confirmed) 2 Active H/O Bronchitis(Confirmed) 2019 Active Constipation(Confirmed) Active Frequent headaches(Confirmed) Active History of IUFD(Confirmed) 3 2011 Active Hx of (PPROM)(Confirmed) 4 2011 Active [...]
--- OUTSIDE RECORDS SUMMARY | 2023-06-03 16:24 | XMS_ITS | Continuity of Care Document ---
Author Name Unknown Organization [facility] Address [address] [place] [address]- Care Team Providers Care Teacher Of Gifted Students Name Role Phone Margo Beyer DO Primary Care Physician En[facility] [place] Date(s): 05/23/19 - 06/02/19 [facility] [address] [address]- [facility] Attending Physician: Bernadette Ochoa Admitting Physician: Bernadette Ochoa Referring Physician: Bernadette Ochoa Allergies, Adverse Reactions, Alerts Substance Reaction Severity Status NKA Active Immunizations Given and Recorded Vaccine Date Status Refusal Reason Measles/Mumps/Rubella Virus Vaccine 09/08/13 Given tetanus/diphtheria/pertussis, acel(Tdap) 07/02/13 Given influenza virus vaccine, inactivated 01/31/13 Give n Medications Multivitamins with Folic Acid 1 mg oral tablet 1 tablet, By Mouth, Daily, # 90 tablet, 3 Refills, Maintenance, Tablet, 1 tablet By Mouth Daily,[id number] Start Date: 01/14/13 Stop Date: 01/09/14 Status: [...]
--- OUTSIDE RECORDS SUMMARY | 2023-06-03 16:24 | XMS_ITS | Continuity of Care Document ---
Author Name Unknown Organization [facility] Address [address] [place] [address]- Care Team Providers Care Pediatric Dietician Name Role Phone Yvette MONROY, Wei Martin Primary Care Physician En[place] [facility] [place] Date(s): 07/23/20 - 07/24/[address] [address]- Discharge Disposition: A-D/C Home Attending Physician: Tanner PATE [OB], Gina Valadez Admitting Physician: Tanner PATE [OB], Gina Valadez Referring Physician: Tanner PATE [OB], Gina Valadez Allergies, Adverse Reactions, Alerts Substance Reaction Severity [...] 3 Refills, Maintenance, 07/08/20 17:11:00 EDT, Tablet, [facility], Partial fill upon patient request if [...] Acute 08/08/20 17:11:00 EDT, 07/08/20 17:11:00 EDT, [facility],Partial fill upon patient request if the prescription i... Start Date: 07/08/20 Stop Date: 08/08/20 Status: Ordered Unisom 25 mg oral tablet 1 tablet = 25 mg, By Mouth, Daily at bedtime, PRN Nausea & Vomiting, # 30 tablet, 0 Refills, Acute 08/08/20 17:12:00 EDT, 07/08/20 17:11:00 EDT, Tablet, [facility], Partial fill upon patient request if [...] 4History of twin delivery/IUFD at 20+2, TTTS. Vital Signs Most recent to oldest [Reference Range]: 1 Height 161 cm (07/23/20 9:47 PM) Oxygen Saturation [94-100 %] 100 % (07/23/20 9:47 PM) Pulse Rate [55-90 bpm] 76 bpm (07/23/20 9:47 PM) Blood Pressure [90-138/55-84 mm Hg] 102/ 60mm Hg (07/23/20 9:47 PM) Respiratory Rate [16-30 br/min] 17 br/mi n (07/23/20 9:47 PM) Temperature [96.8-100.4 DegF] 98.3 DegF (07/23/20 9:47 PM) Mode of Delivery (Oxygen) Room air (07/23/20 9:47 PM) Blood pressure sites Arm, left (07/23/20 9:47 PM) Temperature Route Oral (07/23/20 9:47 PM) Social History Social History Type Response Smoking Status Former smoker, quit more than 30 days ago; Other: States quit 1-2 years ago prior to last ; entered on: 07/08/20 Sex
--- OUTSIDE RECORDS SUMMARY | 2023-06-03 16:24 | XMS_ITS | Continuity of Care Document ---
Author Name Unknown Organization [facility] Address [address] [place] [address]- Care Team Providers Care Accordion Tuner Name Role Phone Margo Beyer DO Primary Care Physician Encounter [facility] [place] Date(s): 09/24/19 - 10/30/19 [facility] [address] [address]- [facility] Attending Physician: Nicola Stanley DO Admitting Physician: Nicola Stanley DO Referring Physician: Will ZHANG, MEDICAL/SURGERY REGISTERED NURSE, Ana Archuleta Allergies, Adverse Reactions, Alerts Substance [...] give 325mg per patient preference and re-dose [id number] within 4 hours, if needed. Patient should [...] Refills, Maintenance, Tablet, 1 tablet By Mouth Daily,[id number] Start Date: 01/14/13 Stop Date: 01/09/14 Status: [...]
--- OUTSIDE RECORDS SUMMARY | 2023-06-03 16:24 | XMS_ITS | Continuity of Care Document ---
Author Name Unknown Organization [facility] Address [address] [place] [address]- Care Team Providers Care Poultry Killer Name Role Phone Yvette MONROY, Wei Martin Primary Care Physician Encounter [facility] [place] Date(s): 10/28/20 - 12/03/[address] [address]- Attending Physician: Avril Thompson MD Admitting Physician: [...] Refills, Maintenance, 08/14/20 15:50:00 EDT, CR Tablet, [facility], Partial fill upon patient request if the prescription is fora schedule II opioid drug., 161, cm, 08/14/20 13:31... Start Date: 08/14/20 Status: Ordered Multivitamins with Folic Acid 1 mg oral tablet 1 tablet, By Mouth, Daily, # 90 tablet, 3 Refills, Maintenance, 07/08/20 17:11:00 EDT, Tablet, [facility], Partial fill upon patient request [...]
--- OUTSIDE RECORDS SUMMARY | 2023-06-03 16:24 | XMS_ITS | Continuity of Care Document ---
Author Name Unknown Organization [facility] Address [address] [place] [address]- Care Team Providers Care Hydrogen Plant Operations Manager Name Role Phone Yvette MONROY, Wei Martin Primary Care Physician [place] [facility] [place]13/20 - 11/13/[address] [address] Attending Physician: Not on Staff, Attending MD [...] Refills, Maintenance, 08/14/20 15:50:00 EDT, CR Tablet, [facility], Partial fill upon patient request if the prescription is fora schedule II opioid drug., 161, cm, 08/14/20 13:31... Start Date: 08/14/20 Status: Ordered doxylamine 25 mg oral tablet 1 tablet = 25 mg, By Mouth, Daily, PRN Insomnia, take 1-2 tablet 15-30min before bed, # 30 tablet, 0 Refills, Acute 11/30/20 9:52:00 EDT, 10/29/20 9:52:00 EDT, Tablet, [facility],do not substitute diphenhydramine, 161, cm, ... Start Date: 10/29/20 Stop Date: 11/30/20 Status: Ordered Multivitamins with Folic Acid 1 mg oral tablet 1 tablet, By Mouth, Daily, # 90 tablet, 3 Refills, Maintenance, 07/08/20 17:11:00 EDT, Tablet, [facility], Partial fill upon patient request if [...]
--- OUTSIDE RECORDS SUMMARY | 2023-06-03 16:24 | XMS_ITS | Continuity of Care Document ---
Author Name Unknown Organization [facility] Address [address] [place] [address]- Care Team Providers Care Research Professional Name Role Phone Yvette MONROY, Wei Martin Primary Care Physician Encounter [facility] Date(s): 08/14/20 - 09/13/[address] [address]- Allergies, Adverse Reactions, Alerts Substance Reaction Severity [...] Refills, Maintenance, 08/14/20 15:50:00 EDT, CR Tablet, [facility], Partial fill upon patient request if the prescription is fora schedule II opioid drug., 161, cm, 08/14/20 13:31... Start Date: 08/14/20 Status: Ordered Multivitamins with Folic Acid 1 mg oral tablet 1 tablet, By Mouth, Daily, # 90 tablet, 3 Refills, Maintenance, 07/08/20 17:11:00 EDT, Tablet, [facility], Partial fill upon patient request [...]
--- OUTSIDE RECORDS SUMMARY | 2023-06-03 16:25 | XMS_ITS | Continuity of Care Document ---
Author Name Unknown Organization [facility] Address [address] [place] [address]- Care Team Providers Care Division Controller Name Role Phone Yvette MONROY, Wei Martin Primary Care Physician Encounter [facility] [place] Date(s): 11/03/20 - 12/06/[address] [address] Attending Physician: Jaclyn Cota CNM Admitting Physician: Jaclyn Cota CNM Referring Physician: Jaclyn Cota CNM Allergies, Adverse Reactions, Alerts Substance Reaction [...] Refills, Maintenance, 08/14/20 15:50:00 EDT, CR Tablet, [facility], Partial fill upon patient request if the prescription is fora schedule II opioid drug., 161, cm, 08/14/20 13:31... Start Date: 08/14/20 Status: Ordered Multivitamins with Folic Acid 1 mg oral tablet 1 tablet, By Mouth, Daily, # 90 tablet, 3 Refills, Maintenance, 07/08/20 17:11:00 EDT, Tablet, [facility], Partial fill upon patient request [...]
--- OUTSIDE RECORDS SUMMARY | 2023-06-03 16:25 | XMS_ITS | Continuity of Care Document ---
Author Name Unknown Organization [facility] Address [address] [place] [address]- Care Team Providers Care Cost Specialist Name Role Phone Magro Beyer DO Primary Care Physician Encounter [facility] Date(s): 11/11/19 - 12/11/[address] [address]- [facility] Attending Physician: Bernadette Ochoa Admitting Physician: AdmBernadette noble Referring Physician: AdmtrBernadette Allergies, Adverse Reactions, Alerts [...] give 325mg per patient preference and re-dose [id number] within 4 hours, if needed. Patient should [...]
--- OUTSIDE RECORDS SUMMARY | 2023-06-03 16:25 | XMS_ITS | Continuity of Care Document ---
Author Name Unknown Organization [facility] Address [address] [place] [address]- Care Team Providers Care Handcrew Foreman Name Role Phone Margo Beyer DO Primary Care Physician Encounter [facility] Date(s): 04/24/19 - 06/22/19 [facility] [address] [address]- [facility] Attending Physician: Not on Staff, Attending MD [...] Refills, Maintenance, Tablet, 1 tablet By Mouth Daily,[id number] Start Date: 01/14/13 Stop Date: 01/09/14 Status: [...]
--- OUTSIDE RECORDS SUMMARY | 2023-06-03 16:25 | XMS_ITS | Continuity of Care Document ---
Author Name Unknown Organization [facility] Address [address] [place] [address]- Care Team Providers Care Support Worker Name Role Phone Margo Beyer DO Primary Care Physician En[place] [facility] [place] Date(s): 09/25/19 - 09/25/[address] [address]- [facility] Discharge Disposition: [facility]red [facility] hospit Attending Physician: Saul Camarillo MD Admitting Physician: Saul Camarillo MD Referring Physician: Not on Staff, Referring [...] Refills, Maintenance, Tablet, 1 tablet By Mouth Daily,[email or web address] Start Date: 01/14/13 Stop Date: 01/09/14 Status: [...] Most recent to oldest [Reference Range]: 1 2 Oxygen Saturation [94-100 %] 98 % (09/25/19 3:28 AM) 99 % (09/25/19 3:18 AM) Pulse Rate [55-90 bpm] 100 bpm *H* (09/25/19 3:28 AM) 73 bpm (09/25/19 3:18 AM) Blood Pressure [90-138/55-84 mm Hg] 130/ 78mm Hg (09/25/19 3:28 AM) 134/80mm Hg (09/25/19 3:18 AM) Respiratory Rate [16-30 br/min] 22 br/mi n (09/25/19 3:28 AM) 18 br/min (09/25/19 3:18 AM) Temperature [96.8-100.4 DegF] 97.7 DegF (09/25/19 3:18 AM) Mode of Delivery (Oxygen) Room air (09/25/19 3:28 AM) Room air (09/25/19 3:18 AM) Blood pressure sites Arm, right (09/25/19 3:28 AM) Arm, left (09/25/19 3:18 AM) Temperature Route Oral (09/25/19 3:18 AM) Social History Social History Type Response Smoking Status Former smoker, quit more than 30 days ago entered on: 02/22/19 Sex
--- OUTSIDE RECORDS SUMMARY | 2023-06-03 16:25 | XMS_ITS | Continuity of Care Document ---
Author Name Unknown Organization [facility] Address [address] [place] [address]- Care Team Providers Care Cabin Outfitter Name Role Phone Yvette MONROY, Wei Martin Primary Care Physician [place] [facility] [place] 09/11/20 - 12/20/[address] [address] Attending Physician: Not on Staff, [...] Refills, Maintenance, 08/14/20 15:50:00 EDT, CR Tablet, [facility], Partial fill upon patient request if the prescription is fora schedule II opioid drug., 161, cm, 08/14/20 13:31... Start Date: 08/14/20 Status: Ordered Multivitamins with Folic Acid 1 mg oral tablet 1 tablet, By Mouth, Daily, # 90 tablet, 3 Refills, Maintenance, 07/08/20 17:11:00 EDT, Tablet, [facility], Partial fill upon patient request [...]
--- OUTSIDE RECORDS SUMMARY | 2023-06-03 16:25 | XMS_ITS | Continuity of Care Document ---
Author Name Unknown Organization [facility] Address [address] [place] [address]- Care Team Providers Care Motor Vehicle License Clerk Name Role Phone Yvette MONROY, Wei Martin Primary Care Physician Encounter [facility] Date(s): 02/12/21 - 02/15/[address] [address] Discharge Disposition: A-D/C Home Attending Physician: Dutch Devries MD Admitting Physician: Dutch Devries MD Referring Physician: Dutch Devries MD Allergies, Adverse Reactions, Alerts Substance Reaction [...] 02/15/21 8:27:00 EDT, Route to Pharmacy Electronically, [facility], Partial... Start Date: 02/15/21 Status: Ordered aspirin 81 mg oral delayed release tablet 2 tablet = 162 mg, By Mouth, Daily, # 60 tablet, 7 Refills, Maintenance, 08/14/20 15:50:00 EDT, CR Tablet, [facility], Partial fill upon patient request [...] 02/15/21 8:27:00 EDT, Route to Pharmacy Electronically, [facility]... Start Date: 02/15/21 Status: Ordered OxyCODONE IR Tablet 5 mg, Tablet, By Mouth, Every 4 hours, PRN for Pain , Moderate, (4-6), Routine, 02/14/21 14:22:00 EDT, Stop date 02/15/21 13:12:00 EDT Start Date: 02/14/21 Stop Date: 02/15/21 Status: Discontinued Multivitamins with Folic Acid 1 mg oral tablet 1 tablet, By Mouth, Daily, # 90 tablet, 3 Refills, Maintenance, 07/08/20 17:11:00 EDT, Tablet, [facility], Partial fill upon patient request [...] recent to oldest [Reference Range]: 1 2 3 Height 160 cm (02/15/21 12:37 AM) 160 cm (02/14/21 10:14 AM) 160 cm (02/14/21 12:00 AM) Weight 90.5 kg (02/12/21 3:44 PM) Oxygen Saturation [94-100 %] 100 % (02/13/21 9:00 AM) 100 % (02/13/21 8:45 AM) 100 % (02/13/21 8:15 AM) Pulse Rate [55-90 bpm] 74 bpm (02/15/21 9:42 AM) 68 bpm (02/15/21 12:37 AM) 72 bpm (02/14/21 10:14 AM) Body Mass Index [18.5-24.99] 35.35 *>HHI* (02/12/21 3:44 PM) Blood Pressure [90-138/55-84 mm Hg] 113/68mm Hg (02/15/21 9:42 AM) 112/60mm Hg (02/15/21 12:37 AM) 104/57mm Hg (02/14/21 2:45 PM) Respiratory Rate [16-30 br/min] 18 br/min (02/15/21 9:42 AM) 18 br/min (02/15/21 6:48 AM) 18 br/min (02/15/21 12:37 AM) Temperature [96.8-100.4 DegF] 98.2 DegF (02/15/21 9:42 AM) 98.2 DegF (02/15/21 12:37 AM) 97.5 DegF (02/14/21 2:45 PM) Mode of Delivery (Oxygen) Room air (02/13/21 2:46 AM) Room air (02/13/21 2:15 AM) Blood pressure sites Arm, right (02/13/21 2:06 PM) Arm, left (02/12/21 3:44 PM) Temperature Route Oral (02/15/21 9:42 AM) Oral (02/15/21 12:37 AM) Axillary (02/14/21 2:45 PM) Dry Weight 90.5 kg (02/12/21 3:44 PM) Social History Social History Type Response Smoking Status Former smoker, quit more than 30 days ago; Other: States quit 1-2 years ago prior to last ; entered on: 07/08/20 Sex
--- OUTSIDE RECORDS SUMMARY | 2023-06-03 16:25 | XMS_ITS | Continuity of Care Document ---
Author Name Unknown Organization [facility] Address [address] [place] [address]- Care Team Providers Care Shirt Sewer Name Role Phone Margo Beyer DO Primary Care Physician Encounter [facility] [place] Date(s): 09/10/19 - 10/17/[address] [address]- [place] [facility] Attending Physician: Not on Staff, Attending [...] give 325mg per patient preference and re-dose [id number] within 4 hours, if needed. Patient should [...] Refills, Maintenance, Tablet, 1 tablet By Mouth Daily,[id number] Start Date: 01/14/13 Stop Date: 01/09/14 Status: [...]
--- OUTSIDE RECORDS SUMMARY | 2023-06-03 16:25 | XMS_ITS | Continuity of Care Document ---
Author Name Unknown Organization [facility] Address [address] [place] [address]- Care Team Providers Care Natural Resources Faculty Member Name Role Phone Not on Staff, PCP Primary Care Physician Unavail able Encounter [facility] Date(s): 01/02/22 - 01/02/[address] [address]- Encounter Diagnosis Kidney stone(Final) - 01/02/22 Discharge Disposition: A-D/C Home Attending Physician: Tung Adam MD Admitting Physician: Tung Adam MD Referring Physician: Not on Staff, Referring MD Allergies, Adverse Reactions, Alerts No Known Allergies Immunizations Given and Recorded Vaccine Date Status [...] 02/15/21 8:27:00 EDT, Route to Pharmacy Electronically, [facility], Partial... Start Date: 02/15/21 Status: Ordered aspirin 81 mg oral delayed release tablet 2 tablet = 162 mg, By Mouth, Daily, # 60 tablet, 7 Refills, Maintenance, 08/14/20 15:50:00 EDT, CR Tablet, [facility], Partial fill upon patient [...] 02/15/21 8:27:00 EDT, Route to Pharmacy Electronically, [facility]... Start Date: 02/15/21 Status: Ordered oxyCODONE 5 mg oral capsule 1 capsule = 5 mg, By Mouth, Every 6 hours, PRN as needed for pain, for 5 days, # 5 capsule, 0 Refills, Acute 01/07/22 21:59:00 EDT, 01/02/22 21:59:00 EDT, Capsule, [facility], Partial fill upon patient request if the prescription i... Start Date: 01/02/22 Stop Date: 01/07/22 Status: Ordered Multivitamins with Folic Acid 1 mg oral tablet 1 tablet, By Mouth, Daily, # 90 tablet, 3 Refills, Maintenance, 07/08/20 17:11:00 EDT, Tablet, [facility], Partial fill upon patient [...] to oldest [Reference Range]: 1 2 3 Oxygen Saturation [94-100 %] 100 % (01/02/22 9:22 PM) 98 % (01/02/22 7:25 PM) 100 % (01/02/22 5:15 PM) Pulse Rate [55-90 bpm] 64 bpm (01/02/22 9:22 PM) 58 bpm (01/02/22 7:25 PM) 71 bpm (01/02/22 5:15 PM) Blood Pressure [90-138/55-84 mm Hg] 128/72mm Hg (01/02/22 9:22 PM) 113/56mm Hg (01/02/22 7:25 PM) 109/60mm Hg (01/02/22 5:15 PM) Respiratory Rate [16-30 br/min] 18 br/min (01/02/22 9:22 PM) 18 br/min (01/02/22 7:25 PM) 18 br/min (01/02/22 5:15 PM) Temperature [96.8-100.4 DegF] 98.2 DegF (01/02/22 9:22 PM) 98.0 DegF (01/02/22 7:25 PM) 98.3 DegF (01/02/22 5:15 PM) Mode of Delivery (Oxygen) Room air (01/02/22 9:22 PM) Room air (01/02/22 7:25 PM) Room air (01/02/22 5:15 PM) Blood pressure sites Arm, right (01/02/22 2:17 PM) Arm, right (01/02/22 1:25 PM) Temperature Route Oral (01/02/22 9:22 PM) Oral (01/02/22 7:25 PM) Oral (01/02/22 5:15 PM) Social History Social History Type Response Smoking Status Former smoker, quit more than 30 days ago; Other: States quit 1-2 years ago prior to last ; entered on: 07/08/20 Sex Care Team Personnel Name: Not on Staff, PCP
--- OUTSIDE RECORDS SUMMARY | 2023-06-03 16:25 | XMS_ITS | Continuity of Care Document ---
Author Name Unknown Organization [facility] Address [address] [place] [address]- Care Team Providers Care Manager Managed Care Name Role Phone Yvette MONROY, Wei Martin Primary Care Physician Encounter [facility] [place] Date(s): 07/13/20 - 09/10/[address] [address]- Attending Physician: Not on Staff, Attending MD Admitting Physician: Michelle Arias CNM Referring Physician: [...] Refills, Maintenance, 08/14/20 15:50:00 EDT, CR Tablet, [facility], Partial fill upon patient request if the prescription is fora schedule II opioid drug., 161, cm, 08/14/20 13:31... Start Date: 08/14/20 Status: Ordered Multivitamins with Folic Acid 1 mg oral tablet 1 tablet, By Mouth, Daily, # 90 tablet, 3 Refills, Maintenance, 07/08/20 17:11:00 EDT, Tablet, [facility], Partial fill upon patient request [...]
--- OUTSIDE RECORDS SUMMARY | 2023-06-03 16:25 | XMS_ITS | Continuity of Care Document ---
Author Name Unknown Organization [facility] Address [address] [place] [address]- Care Team Providers Care Bias Cutting Machine Operator Vertical Name Role Phone Yvette MONROY, Wei Martin Primary Care Physician Encounter [facility] Date(s): 08/11/20 - 09/10/[address] [address]- Allergies, Adverse Reactions, Alerts Substance Reaction Severity [...] Refills, Maintenance, 08/14/20 15:50:00 EDT, CR Tablet, [facility], Partial fill upon patient request if the prescription is fora schedule II opioid drug., 161, cm, 08/14/20 13:31... Start Date: 08/14/20 Status: Ordered Multivitamins with Folic Acid 1 mg oral tablet 1 tablet, By Mouth, Daily, # 90 tablet, 3 Refills, Maintenance, 07/08/20 17:11:00 EDT, Tablet, [facility], Partial fill upon patient request if [...]
--- OUTSIDE RECORDS SUMMARY | 2023-06-03 16:25 | XMS_ITS | Continuity of Care Document ---
Author Name Unknown Organization [facility] Address [address] [place] [address]- Care Team Providers Care Computational Chemist Name Role Phone Margo Beyer DO Primary Care Physician En[place] [facility] [place] Date(s): 05/23/19 - 07/11/19 [facility] [address] [address]- [facility] Attending Physician: Not on Staff, Attending [...] Compound, 160, cm, 07/09/19 1... Start Date: 3/24/20 Status: Ordered FREE STYLE LITE STRIPS FREE [...] Refills, Maintenance, Tablet, 1 tablet By Mouth Daily,[email or web address] Start Date: 01/14/13 Stop Date: 01/09/14 Status: [...]
--- OUTSIDE RECORDS SUMMARY | 2023-06-03 16:25 | XMS_ITS | Continuity of Care Document ---
Author Name Unknown Organization [facility] Address [address] [place] [address]- Care Team Providers Care Aviation Maintenance Instructor Name Role Phone Margo Beyer DO Primary Care Physician Encounter [facility] [place] Date(s): 08/13/19 - 08/20/19 [facility] [address] [address] [facility] Attending Physician: Shameka Steinberg DO Referring Physician: Margo Beyer DO Allergies, Adverse [...] Refills, Maintenance, Tablet, 1 tablet By Mouth Daily,[id number] Start Date: 01/14/13 Stop Date: 01/09/14 Status: Ordered Problem List Condition Effective Dates Status Health Status Inform ant Asthma(Confirmed) 1 Active Depression affecting (Confirmed) Active History of IUFD(Confirmed) 2 2011 Active Low-lying placenta(Confirmed) Active Hx of (PPROM)(Confirmed) 3 2011 Active 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
--- OUTSIDE RECORDS SUMMARY | 2023-06-03 16:25 | XMS_ITS | Continuity of Care Document ---
Author Name Unknown Organization [facility] Address [address] [place] [address]- Care Team Providers Care Trimmer Machine Name Role Phone Yvette MONROY, Wei Martin Primary Care Physician Encounter [facility] [place] Date(s): 10/20/20 - 11/20/[address] [address] Attending Physician: Not on [...] Refills, Maintenance, 08/14/20 15:50:00 EDT, CR Tablet, [facility], Partial fill upon patient request if the prescription is fora schedule II opioid drug., 161, cm, 08/14/20 13:31... Start Date: 08/14/20 Status: Ordered doxylamine 25 mg oral tablet 1 tablet = 25 mg, By Mouth, Daily, PRN Insomnia, take 1-2 tablet 15-30min before bed, # 30 tablet, 0 Refills, Acute 11/30/20 9:52:00 EDT, 10/29/20 9:52:00 EDT, Tablet, [facility],do not substitute diphenhydramine, 161, cm, ... Start Date: 10/29/20 Stop Date: 11/30/20 Status: Ordered Multivitamins with Folic Acid 1 mg oral tablet 1 tablet, By Mouth, Daily, # 90 tablet, 3 Refills, Maintenance, 07/08/20 17:11:00 EDT, Tablet, [facility], Partial fill upon patient request if [...]
--- OUTSIDE RECORDS SUMMARY | 2023-06-03 16:25 | XMS_ITS | Continuity of Care Document ---
Author Name Unknown Organization [facility] Address [address] [place] [address]- Care Team Providers Care Belt Line Feeder Name Role Phone Margo Beyer DO Primary Care Physician [place] [facility] [place] - 09/09/19 [facility] [address] [address]- [facility] Attending Physician: Shameka Steinberg DO Admitting Physician: Baldomero PATE, Chuckie Chen Referring Physician: Margo Beyer DO Allergies, Adverse [...] Refills, Maintenance, Tablet, 1 tablet By Mouth Daily,[id number] Start Date: 01/14/13 Stop Date: 01/09/14 Status: Ordered Problem List Condition Effective Dates Status Health Status Inform ant Asthma(Confirmed) 1 Active Depression affecting (Confirmed) Active History of IUFD(Confirmed) 2 2011 Active Hx of (PPROM)(Confirmed) 3 2011 Active 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
--- OUTSIDE RECORDS SUMMARY | 2023-06-03 16:25 | XMS_ITS | Continuity of Care Document ---
Author Name Unknown Organization [facility] Address [address] [place] [address]- Care Team Providers Care Section Leader And Machine Setter Name Role Phone Yvette MONROY, Wei Martin Primary Care Physician [facility]counter [facility] Date(s): 11/26/20 - 12/26/[address] [address] Allergies, Adverse Reactions, Alerts Substance Reaction Severity [...] Maintenance, 08/14/20 15:50:00 EDT, CR Tablet, [facility], Partial fill upon patient request if the prescription is fora schedule II opioid drug., 161, cm, 08/14/20 13:31... Start Date: 08/14/20 Status: Ordered Multivitamins with Folic Acid 1 mg oral tablet 1 tablet, By Mouth, Daily, # 90 tablet, 3 Refills, Maintenance, 07/08/20 17:11:00 EDT, Tablet, [facility], Partial fill upon patient request if [...]
--- OUTSIDE RECORDS SUMMARY | 2023-06-03 16:25 | XMS_ITS | Continuity of Care Document ---
Author Name Unknown Organization [facility] Address [address] [place] [address]- Care Team Providers Care Manufacturing Engineering Intern Name Role Phone Yvette MONROY, Wei Martin Primary Care Physician Encounter [facility] Date(s): 11/06/20 - 12/06/[address] [address] Allergies, Adverse Reactions, Alerts Substance [...] Refills, Maintenance, 08/14/20 15:50:00 EDT, CR Tablet, [facility], Partial fill upon patient request if the prescription is fora schedule II opioid drug., 161, cm, 08/14/20 13:31... Start Date: 08/14/20 Status: Ordered Multivitamins with Folic Acid 1 mg oral tablet 1 tablet, By Mouth, Daily, # 90 tablet, 3 Refills, Maintenance, 07/08/20 17:11:00 EDT, Tablet, [facility], Partial fill upon patient request [...]
--- OUTSIDE RECORDS SUMMARY | 2023-06-03 16:25 | XMS_ITS | Continuity of Care Document ---
Author Name Unknown Organization [facility] Address [address] [place] [id number]- Care Team Providers Care Field Human Resources Manager Name Role Phone Yvette MONROY, Wei Martin Primary Care Physician Encounter [facility] Date(s): 08/04/20 - 09/03/[address] [address]- Allergies, Adverse Reactions, Alerts Substance Reaction Severity [...] Refills, Maintenance, 08/14/20 15:50:00 EDT, CR Tablet, [facility], Partial fill upon patient request if the prescription is fora schedule II opioid drug., 161, cm, 08/14/20 13:31... Start Date: 08/14/20 Status: Ordered Multivitamins with Folic Acid 1 mg oral tablet 1 tablet, By Mouth, Daily, # 90 tablet, 3 Refills, Maintenance, 07/08/20 17:11:00 EDT, Tablet, [facility], Partial fill upon patient request [...]
--- OUTSIDE RECORDS SUMMARY | 2023-06-03 16:25 | XMS_ITS | Continuity of Care Document ---
Author Name Unknown Organization [facility] Address [address] [place] [id number]- Care Team Providers Care Prison Librarian Name Role Phone Margo Beyer DO Primary Care Physician Encounter [facility] Date(s): 09/25/19 - 09/26/[address] [address]- [facility] Discharge Disposition: A-D/C Home Attending Physician: Tian Malloy MD Admitting Physician: Tian Malloy MD Referring Physician: Tian Malloy MD Allergies, Adverse Reactions, Alerts Substance Reaction [...] give 325mg per patient preference and re-dose [id number] within 4 hours, if needed. Patient should [...] Refills, Maintenance, Tablet, 1 tablet By Mouth Daily,[id number] Start Date: 01/14/13 Stop Date: 01/09/14 Status: [...] Range]: 1 2 3 Height 160 cm (09/26/19 4:45 PM) 160 cm (09/26/19 8:45 AM) 160 cm (09/25/19 11:51 PM) Weight 84 kg (09/25/19 5:37 AM) Oxygen Saturation [94-100 %] 99 % (09/25/19 11:51 PM) 99 % (09/25/19 12:15 PM) 99 % (09/25/19 11:15 AM) Pulse Rate [55-90 bpm] 81 bpm (09/26/19 4:45 PM) 83 bpm (09/26/19 8:45 AM) 81 bpm (09/25/19 11:51 PM) Body Mass Index [18.5-24.99] 32.81 *>HHI* (09/25/19 5:37 AM) Blood Pressure [90-138/55-84 mm Hg] 118/63mm Hg (09/26/19 4:45 PM) 103/66mm Hg (09/26/19 8:45 AM) 117/69mm Hg (09/25/19 11:51 PM) Respiratory Rate [16-30 br/min] 18 br/min (09/26/19 4:45 PM) 18 br/min (09/26/19 11:47 AM) 18 br/min (09/26/19 9:23 AM) Temperature [96.8-100.4 DegF] 97.6 DegF (09/26/19 4:45 PM) 97.9 DegF (09/26/19 8:45 AM) 97.5 DegF (09/25/19 11:51 PM) Mode of Delivery (Oxygen) Room air (09/25/19 11:51 PM) Blood pressure sites Arm, left (09/26/19 4:45 PM) Arm, right (09/26/19 8:45 AM) Arm, right (09/25/19 5:37 AM) Temperature Route Oral (09/26/19 4:45 PM) Oral (09/26/19 8:45 AM) Oral (09/25/19 11:51 PM) Dry Weight 84 kg (09/25/19 5:37 AM) Social History Social History Type Response Smoking Status Former smoker, quit more than 30 days ago entered on: 02/22/19 Sex
--- OUTSIDE RECORDS SUMMARY | 2023-06-03 16:25 | XMS_ITS | Continuity of Care Document ---
Author Name Unknown Organization [facility] Address [address] [place] [id number]- Care Team Providers Care Manager Oracle Database Name Role Phone Yvette MONROY, Wei Martin Primary Care Physician Encounter [facility] Date(s): 09/02/20 - 10/02/[address] [address]- Allergies, Adverse Reactions, Alerts Substance Reaction Severity [...] Refills, Maintenance, 08/14/20 15:50:00 EDT, CR Tablet, [facility], Partial fill upon patient request if the prescription is fora schedule II opioid drug., 161, cm, 08/14/20 13:31... Start Date: 08/14/20 Status: Ordered Multivitamins with Folic Acid 1 mg oral tablet 1 tablet, By Mouth, Daily, # 90 tablet, 3 Refills, Maintenance, 07/08/20 17:11:00 EDT, Tablet, [facility], Partial fill upon patient request [...]
== END 2023-06-03 16:47 | disposition home or self-care (01) ==
PROVIDERS: Emergency Provider Student in an Organized Health Care Education/Training Program
DX: M25.532 Pain in left wrist (principal)
CPT/HCPCS: 73110; 73130; 99281; 99283

== ENCOUNTER 2023-07-05 10:22 | Outpatient (AMB) | payer MEDICAID, SELFPAY ==
[2023-07-05 10:36] VITALS: BMI 28.7
--- NOTE | 2023-07-05 10:36 | MHC.OFFVIS ---
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 States her pain is mainly by her ulanr aspect of wrist. Pain increases with wrist movement. No injury she can recall. Reports pain is worse at night and 1st thing in the morning with intermittent numbness/tingling. NO EMG done. Allergies No Known Allergies Allergy (Verified 07/05/23 10:41) HPI New prob-left hand pain HPI Details Celina is a 28 year old right hand dominant woman who presents with complaints of several months left wrist & hand pain. She complains of pain primarily in the ulnar aspect of her wrist. She says her pain is worse at night, pick up driver, and with wrist motion. She also complains of numbness in all her fingers bilaterally. Her symptoms are intermittent, but daily, wore in the mornings. She was seen in the ED on 06/03/23 for her pain & hand swelling, she was placed in a wrist splint and given Naproxen to take. She denies any prior injury. 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 [facility] Surgical History (Updated 07/05/23 @ 10:43 by LINNETTE Damian) H/O tubal ligation Social History (Updated 07/05/23 @ 10:42 by LINNETTE Damian) Alcohol intake: former Patient Tobacco Use Status: Former Tobacco user Current occupational status: employed Current occupation: right hand dominant/PRODUCTION CONTROL EXPERT Review of Systems Const All systems reviewed & are unremarkable except as noted in HPI and below Physical Exam Vital Signs: BMI result Body Mass Index 28.7 Const General: cooperative, healthy appearing and no acute distress Orientation/consciousness: patient oriented x3 HEENT Head: Yes normocephalic and Yes atraumatic Eyes EOM: EOMs intact bilaterally Resp Effort & Inspection: normal respiratory effort and able to speak in complete sentences Cardio Jugular venous distension: no JVD Skin General skin exam: turgor normal Rashes: no rashes Neuro General: patient oriented x3 Extrem Other: Evaluation of Left Upper Extremity: The patient is alert, oriented, and in no acute distress Neuro: Median, Ulnar, Radial nerves motor and sensory intact and sensation is normal to the tips of all digits No thenar or intrinsic wasting Good APB muscle belly firing and good finger cross Vascular: Cap refill brisk ROM: She can make a fist and extend all her digits No locking or catching Tender over the ECU tendon, as it passes over the distal ulna and over the ulnocarpal joint Increased pain in the area of the ECU tendon with resisted wrist extension. Not particularly tender over the DRUJ and the DRUJ is stable Symmetrical prono-supination No subluxation of the ECU tendon with prono-supination Mild foveal tenderness Skin: No lacerations or abrasions. General: No Ecchymosis. No Erythema or evidence of infection. Radiographs: 3 views of the left hand & wrist, plus a scaphoid view, from 06/03/23 were reviewed by me today in clinic. They show no fractures or dislocations. No appreciable arthritic changes Psych Appearance: grossly normal Affect: normal affect Attitude: cooperative Office Procedures Fracture Care Details: No fracture, injection Fracture Billing Code: Fracture Billing Code Assessment & Plan Assessment & Plan (1) Chronic pain of left wrist: Code(s): M25.532 - Pain in left wrist; G89.29 - Other chronic pain (2) Numbness and tingling in both hands: Code(s): R20.0 - Anesthesia of skin; R20.2 - Paresthesia of skin Plan Assessment & Plan: 1. Left ulnar-sided wrist pain Most consistent with ECU tendinitis I educated her about this condition I discussed non-operative treatment options I recommend an injection & wrist splint She was fitted for a velcro wrist splint to be worn with daily activity. This should be removed at rest Injection #1: The risks and benefits of a steroid injection including but not limited to risk of damage to blood vessels, nerves, tendons, infection, skin bleaching, failure to improve symptoms, increased pain, and possible need for further injections or other intervention were discussed with the patient and the patient wishes to proceed with the steroid injection. Once consent was obtained, I sterilely prepped the area over the left ECU tendon as it passes over the distal ulna and the ulnocarpal joint. I then injected the ECU tendon sheath with a combination of 1 mL of dexamethasone (4mg/ml), and 1% lidocaine. The patient tolerated the procedure well with no complications and good resolution of their symptoms prior to leaving clinic. She will contact the clinic in 4 weeks to see how she is doing. We may consider an MRI arthrogram if her symptoms persist 2. Bilateral hand numbness Symptoms intermittent, but daily, worse in the mornings I educated her about this condition I ordered a NCS to assess for peripheral nerve compression She will follow up when completed for review Scribed for Beatriz Dent MD by Wicho Cruz, district medical examiner, on 07/05/23 at 11:10 AM, EST. Coding Level of Care Code Est Pt Level 3 ([address]) Diagnoses Chronic pain of left wrist M25.532; G89.29 Numbness and tingling in both hands R20.0; R20.2 CPT Codes Fracture Care - Fracture Billing Code: Fracture Billing Code ([id number])
== END 2023-07-05 11:16 | disposition home or self-care (01) ==
PROVIDERS: Visit Provider Orthopaedic Surgery
DX: M25.532 Pain in left wrist (principal); G89.29 Other chronic pain; R20.0 Anesthesia of skin; R20.2 Paresthesia of skin
CPT/HCPCS: 20550; 99213

== ENCOUNTER → 2023-07-05 10:22 | Outpatient (BNVA) | payer MEDICAID, SELFPAY | PROVIDERS: Visit Provider Orthopaedic Surgery | DX: M25.532 Pain in left wrist (principal); G89.29 Other chronic pain; R20.0 Anesthesia of skin; R20.2 Paresthesia of skin | CPT/HCPCS: 20550; 99212; J1100 ==

== ENCOUNTER 2023-07-30 11:13 | Emergency (ER) | payer MEDICAID, SELFPAY ==
[2023-07-30 11:21] VITALS: BP 111/77; PULSE 90; RESP 16; TEMP 36.3; O2SAT 100; BMI 27.8
--- NOTE | 2023-07-30 11:26 | ED_ITS ---
HPI - URI/Sore Throat General Chief Complaint: General Medical Stated Complaint: Flu positive Time Seen by Provider: 07/30/23 11:26 Source: patient Mode of arrival: ambulatory Limitations: no limitations History of Present Illness HPI Narrative: Patient is a 28-year-old female presents emergency department for evaluation of right eye discomfort, redness, watering with onset last night. Reports testing flu positive 2 days ago. Denies pain with movement of the eye, purulent discharge, vision changes, contact lens usage, fevers, chills, tauma or injury Related Data Previous Rx's ?Medication ?Instructions ?Recorded acetaminophen 500 mg tablet 500 mg PO Q6H PRN fever or pain 06/03/23 (Tylenol Extra Strength) #14 tabs naproxen 500 mg tablet 500 mg PO BID PRN pain 10 days #20 06/03/23 tabs Allergies Allergy/AdvReac Type Severity Reaction Status Date / Time No Known Allergies Allergy Verified 07/30/23 11:23 Review of Systems Review of Systems: Yes all other systems are reviewed and are negative PMFSH Past Medical History Attestation statement: The following information was validated with the patient. Source: old records reviewed Surgical History H/O tubal ligation Social History Social History (Updated 07/05/23 @ 10:42 by Monica Tavarez [facility]) Alcohol intake: former Patient Tobacco Use Status: Former Tobacco user Current occupational status: employed Current occupation: right hand dominant/CERTIFIED MEDICAL RECORDS CODER Physical Exam Vital Signs: Vital Signs: Last Vital Signs Temp 97.4 F 07/30/23 11:21 Pulse 90 07/30/23 11:21 Resp 16 07/30/23 11:21 BP 111/77 07/30/23 11:21 Pulse Ox 100 07/30/23 11:21 O2 Del Method Room Air 07/30/23 11:21 BMI result Body Mass Index 27.8 Appearance: Alert.?Oriented to person, place and time. No acute distress.?Normal affect. Eyes: Pupils equal, round and reactive to light.? Sclera noninjected, right conjunctiva erythematous, no purulence ENT: Pharynx normal.?? Neck: Normal inspection.? Neck supple.?? CVS: Heart sounds normal. Normal heart rate and rhythm.? Pulses normal.?? Respiratory: No respiratory distress.? Lung sounds clear to auscultation bilaterally?? Skin: Skin warm and dry.? Normal skin color. Extremities: No lower extremity edema.? Neuro: Moves all extremities spontaneously. Ambulates with normal steady gait. Medical Decision Making Medical Decision Making [facility] Narrative: Patient is a 21 female presents emergency department for evaluation of right eye redness watering and discomfort as per HPI. Overall she is well-appearing, nontoxic, afebrile. She is currently influenza positive exam at this time is most consistent with a viral conjunctivitis. We discussed conservative treatmen t, worrisome signs and symptoms that would warrant re-evaluation. Exam is not consistent with periorbital or orbital cellulitis, scleritis, uveitis/iritis, keratitis. Stable for discharge home Differential Diagnosis Differential Diagnoses: The differential diagnosis associated with the presentation includes (As noted above) External Record Review External record reviewed: Outpatient record Prescription Management I considered prescription management with: Antibiotic (Suspect viral etiology versus bacterial conjunctivitis at this time) Discharge Plan Discharge Clinical Impression: Conjunctivitis Patient Disposition: Home, Self-Care Instructions: Conjunctivitis (ED) Prescriptions: No Action acetaminophen [Tylenol Extra Strength] 500 mg tablet 500 mg PO Q6H PRN (Reason: fever or pain) Qty: 14 0RF naproxen 500 mg tablet 500 mg PO BID PRN (Reason: pain) 10 Days Qty: 20 0RF Referrals: Physician,Unknown J [Primary Care Provider] - Print Language: Botswanan
[2023-07-30 11:33] VITALS: BP 111/77; PULSE 90; RESP 16; TEMP 36.3; O2SAT 100
== END 2023-07-30 11:34 | disposition home or self-care (01) ==
LOC: HO.ED 11:31
PROVIDERS: Emergency Provider Student in an Organized Health Care Education/Training Program
DX: H10.9 Unspecified conjunctivitis (principal); J11.1 Influenza due to unidentified influenza virus with other respiratory manifestations
CPT/HCPCS: 99282

== ENCOUNTER 2024-03-12 14:23 | Outpatient (REF) | payer MEDICAID, SELFPAY ==
[2024-03-15 07:29] LABS: TS Negative Control Passed; TS Panel A 0; TS Panel B 0; TS Positive Control Passed; TSpotTB Negative (Negative)
== END 2024-03-12 14:24 | disposition home or self-care (01) ==
LOC: HO.HHCL 14:23
PROVIDERS: Visit Provider Registered Nurse
DX: Z11.1 Encounter for screening for respiratory tuberculosis (principal)
CPT/HCPCS: 36415; 86481

== ENCOUNTER 2024-07-04 12:25 | Outpatient (REF) | payer MEDICAID, SELFPAY ==
--- NOTE | ~2024-07-04 | XR_ITS ---
EXAMINATION: XR HAND 3 OR MORE VIEWS RIGHT HISTORY: PAIN COMPARISON: There are no prior studies available for comparison. FINDINGS: Four views of the right hand are submitted. Osseous mineralization is normal. There is no fracture or dislocation. The joint spaces are preserved. The soft tissues are unremarkable. XR/XR hand RT min 3V IMPRESSION: Unremarkable examination of the right hand. Electronically signed by: Sergei Arriaga MD 07/04/2024 01:35 PM EDT
--- OUTSIDE RECORDS SUMMARY | 2024-07-04 14:43 | XMS_ITS | Encounter Summary ---
Author Organization [facility] Address [address] [place] [address] [address] [place] [address] Care Team Providers Care Building Construction Ironworker Name Role Phone Belgica Agrawal OUTBOARD MOTOR ASSEMBLER Primary Care Provider [phone] Reason for Referral * Consultation (STAT) - Pending Review Specialty Diagnoses / Procedures Referred By Paul scott Referred To Contact Orthopaedic Surgery Diagnoses Pain of finger of right hand Kristy Franco DO [address] [place] [address] Phone: tel: fax: Referral ID Status Reason Start Date Expiration Date Visits Requested Visits Authorized [id number] Pending Review Specialty Services Required 07/04/2024 07/04/2025 1 1 Reason for Visit * Reason Comments Finger Pain Encounter Details Date Type Department Care Team (Late st Contact Info) Description 07/04/2024 10:00 AM EDT Office Visit [facility] [address] [place] [id number] Kristy Franco DO [address] [place] [address] Pain of finger of right hand (Primary Dx) Social History Tobacco Use Types Packs/Day Years Used Date Smoking Tobacco: Every Day Cigarettes Smokeless Tobacco: Never Depression Answer Date Recorded Patient Health Questionnaire-9 Score 12 02/20/2023 Patient Health Questionnaire-9 Score 12 02/20/2023 Last PHQ-9: Questionnaire Data Not on file 1 04/22/2022 Housing Stability Answer Date Recorded What is your housing situation today? I have raz marquez 02/06/[address] you li ve. Do you have problems with any of the following? None of the above 02/06/2023 Food Insecurity Answer Date Recorded Within the past 12 months, y ou worried that your food would run out before you got money to buy more: Never True 02/06/2023 Within the past 12 months,th e food you bought just didn't last and you didn't have enough money to get more: Never True Transportation Answer Date Recorded In the past 12 months, has l ack of transportation kept you from medical appts, meetings, work or from getting things needed for daily living? No 02/06/2023 Utilities Answer Date Recorded In the past 12 months, has t he electric, gas, oil or water company threatened to shut off services in your home? No 02/06/2023 Depression Answer Date Recorded Patient Health Questionnaire-2 Score 4 02/20/2023 Comments Unknown Sex and Gender Information Value Date Recorded Sex Assigned at Female 02/14/2022 10:20 AM EDT Legal Sex Female 10:20 AM EDT Gender Identity Female 02/14/2022 10:20 AM EDT Sexual Orientation Straight 12/28/2023 4: 00 PM EDT documented as of this encounter Last Filed Vital Signs Vital Sign Reading Time Taken Comments Blood Pressure 124/68 07/04/2024 9:37 AM EDT Pulse 73 07/04/2024 9:37 AM EDT Temperature 36.9 ??C (98.4 ??F) 07/04/2024 9:37 AM ED T Respiratory Rate 17 07/04/2024 9:37 AM EDT Oxygen Saturation 98% 07/04/2024 9:37 AM EDT Inhaled Oxygen Concentration - - Weight 67.6 kg (149 lb) 07/04/2024 9:37 AM EDT Height - - Body Mass Index 26.39 07/28/2023 10:10 AM EDT documented in this encounter Progress Notes * Kristy Franco, - 07/04/2024 10:00 AM EDT SUBJECTIVE Celina Zimmerman is a 29 y.o. female who presents for Sick Visit. She presents to [place] today c/o pain in her pinky finger for the last 1-2 weeks. She says that she was mad and frustrated and hit her metal door several times with closed-fist in ahammering motion, with her pinky hitting first. She cut her pinky finger while she was preparing dinner the same day. She says the pain is more of a discomfort and she has not taken anything for the pain. She feels a little numbness at the tip of the finger. Her main concern is that she can't bend her finger all theway. History provided by: Patient extrusion engineer used: No Review of Systems Constitutional: Negative for activity change, appetite change, chills, fever and unexpected weight change. Respiratory: Negative for cough and shortness of breath. Cardiovascular: Negative for chest pain, palpitations and leg swelling. Gastrointestinal: Negative for abdominal pain, diarrhea, nausea and vomiting. Musculoskeletal: Positive for arthralgias. Neurological: Positive for numbness. Negative for headaches. Patient Active Problem List Diagnosis Adjustment disorder with mixed emotional features Depressive disorder Obese Migraine with aura, not intractable Tobacco dependence Cannabis use, uncomplicated Anxiety Stress-related problem Housing problems No Known Allergies OBJECTIVE Visit Vitals BP 124/68 (BP Location: Left arm, Patient Position: Sitting, BP Cuff Size: Adult) Pulse 73 Temp 98.4 ??F (36.9 ??C) (Oral) Resp 17 Wt 149 lb (67.6 kg) SpO2 98% BMI 26.39 kg/m?? Smoking Status Every Day BSA 1.73 m?? Physical Exam Constitutional: General: She is not in acute distress. Appearance: Normal appearance. Cardiovascular: Rate and Rhythm: Normal rate and regular rhythm. Heart sounds: Normal heart sounds. No murmur heard. Pulmonary: Effort: Pulmonary effort is normal. Breath sounds: Normal breath sounds. No wheezing or rhonchi. Musculoskeletal: Right hand: No swelling, lacerations or tenderness. Decreased range of motion. Normal sensation. Normal capillary refill. Normal pulse. Comments: Nml PROM R 5th DIP Abnml AROM R 5th DIP Skin: Capillary Refill: Capillary refill takes less than 2 seconds. Neurological: General: No focal deficit present. Mental Status: She is alert and oriented to person, place, and time. Cranial Nerves: No cranial nerve deficit. Sensory: Sensation is intact. Motor: No weakness. Gait: Gait is intact. Psychiatric: Mood and Affect: Mood normal. Assessment/Plan Diagnoses and all orders for this visit: Pain of finger of right hand Persistent discomfort pinky finger, unable to flex DIP, s/p trauma -referred for XR -encouraged motrin prn -referred to ortho for STAT eval --Follow-up with PCP as scheduled or sooner prn-- Current Outpatient Medications: amitriptyline (Elavil) 10 MG tablet, Take 1 tablet (10 mg) by mouth at bedtime., Disp: 90 tablet, Rfl: 0 tiZANidine (Zanaflex) 2 MG tablet, Take 1 tablet (2 mg) by mouth every 8 (eight) hours if needed for muscle spasms. (Patient not taking: Reported on 09/14/2022), Disp: 30 tablet, Rfl: 0 Scribe Attestation: Jamie Luna, am serving as a scribe to document services personally performed by Kristy Gunter, based on the patient's response to questions by provider and provider's statements to me. 07/04/24 10:28 AM Physicians Attestation: Kristy Luna DO, have reviewed the information by the scribe, Jamie Workman, for accuracy and agree with its content. documented in this encounter Plan of Treatment Upcoming Encounters Date Type Department Care Team (Late st Contact Info) Description 07/15/2024 9:30 AM EDT Office Visit [facility] [address] [place] [address] Belgica Agrawal FNP [address] [place] [address] Scheduled Referrals Name Type Priority Associated Diagnoses Order Schedule Referral to Orthopaedic Surgery Outpatient Referral STAT Pain of finger of right hand Expected: 07/04/2024 (Approximate), Expires: 07/04/2025 documented as of this encounter Procedures Procedure Name Priority Date/Time Associated Diagnosis Comments XR HAND 3+ VIEWS RIGHT STAT 07/04/2024 12:27 PM EDT Pain of finger of right hand documented in this encounter Results * XR Hand 3+ Views Right (07/04/2024 12:27 PM EDT) Anatomical Region Laterality Modality Upper Extremities, Hand Right Radiogra phic Imaging 07/04/2024 12:2 7 PM EDT Narrative 07/04/2024 1:37 PM EDT ?[facility] ?[address] ?[place] [address] ?XRay Report ? Signed ? Patient: Loomis Erasmo,Celina N ?MR#: ?? [id number] ? : 1995 ?Acct:[id number] ? Age/Sex: 29 / F ?ADM Date: 07/04/24 ? Loc: HO.HHCX ? Attending Dr: Kristy Franco DO ? Ordering Physician: Kristy Franco DO ?? Date of Service: 07/04/24 ?? Procedure(s): XR hand RT min 3V ?? Accession Number(s): [id number] ? cc: Kristy Franco DO ? EXAMINATION: ??XR HAND 3 OR MORE VIEWS RIGHT ? HISTORY: PAIN ? COMPARISON: There are no prior studies available for comparison. ? FINDINGS: ? Four views of the right hand are submitted. ??Osseous mineralization is ?? normal. ??There is no fracture or dislocation. ??The joint spaces are ?? preserved. ??The soft tissues are unremarkable. ? XR/XR hand RT min 3V ?? IMPRESSION: ? Unremarkable examination of the right hand. ? Electronically signed by: ??Sergei Arriaga MD ??07/04/2024 01:35 PM EDT ?? RP ? Dictated By: ?Sergei Arriaga MD ? Signed By: ?<Electronically signed by Sergei Arriaga MD in OV> ?07/04/24 1335 ? DD/ 1227 ? TD/TT: 07/04/24 1240 ? Director Of Restaurant Operations: ? Procedure Note Ernie Florian - 07/04/[address] [address] XRay Report Signed Patient: Celina Thompson NMR#: [id number] : 1995Acct:[id number] Age/Sex: 29 / FADM Date: 07/04/24 Loc: HO.HHCX Attending Dr: Kristy Franco DO Ordering Physician: Kristy Franco DO Date of Service: 07/04/24 Procedure(s): XR hand RT min 3V Accession Number(s): [id number] cc: Kristy Franco DO EXAMINATION: XR HAND 3 OR MORE VIEWS RIGHT HISTORY: PAIN COMPARISON: There are no prior studies available for comparison. FINDINGS: Four views of the right hand are submitted. Osseous mineralization is normal. There is no fracture or dislocation. The joint spaces are preserved. The soft tissues are unremarkable. XR/XR hand RT min 3V IMPRESSION: Unremarkable examination of the right hand. Electronically signed by: Sergei Arriaga MD 07/04/2024 01:35 PM EDT Dictated By: Sergei Arriaga MD Signed By: <Electronically signed by Sergei Arriaga MD in OV> 07/04/24 1335 DD/ 1227 TD/TT: 07/04/24 1240 Director Of Restaurant Operations: Kristy Franco DO IMG XR PROCEDURES Final Resu lt documented in this encounter Visit Diagnoses Diagnosis Pain of finger of right hand- Primary documented in this encounter Additional Health Concerns Assessment Noted Time PHQ-9 Depression Total Score: 12 023 2:10 PM EST documented as of this encounter Care Teams Building Construction Ironworker Relationship Specialty Start Date End Date Belgica Agrawal FNP [address] [place] [id number] PCP - General Family Medicine 12/13/21 documented as of this encounter
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
--- OUTSIDE RECORDS SUMMARY | 2024-07-04 14:43 | XMS_ITS | Encounter Summary ---
Author Organization [facility] Address [address] [facility] 7[address] [place] [address] Care Team Providers Care Kennel Keeper Name Role Phone Belgica Agrawal CESIA Primary Care Provider Encounter Details Date Type Department Care Team ([facility] st Contact Info) Description 06/28/2024 Population Health Risk Score [facility] Department [address] [place] [phone] Provider, Population Health Generic Social History Tobacco Use Types Packs/Day Years [...] PM EDT documented as of this encounter Plan of Treatment Upcoming Encounters Date Type Department Care Team (Late st Contact Info) Description 07/15/2024 9:30 AM EDT Office Visit [facility] [address] [place] [address] Belgica Agrawal FNP [address] [place] [address] documented as of this encounter Visit Diagnoses Not on filedocumented in this encounter Additional Health Concerns Assessment Noted Time PHQ-9 Depression Total Score: 12 023 2:10 PM EST documented as of this encounter Care Teams Kennel Keeper Relationship Specialty Start Date End Date Belgica Agrawal FNP [address] [place] [address] PCP - General Family Medicine 12/13/21 documented as of this encounter
== END 2024-07-04 12:26 | disposition home or self-care (01) ==
LOC: HO.HHCX 12:25
PROVIDERS: Visit Provider Family Medicine
DX: M79.644 Pain in right finger(s) (principal)
CPT/HCPCS: 73130

== ENCOUNTER → 2024-07-04 12:27 | Outpatient (BNV) | payer MEDICAID, SELFPAY | PROVIDERS: Visit Provider Radiology Diagnostic Radiology | DX: M79.641 Pain in right hand (principal) | CPT/HCPCS: 73130 ==

== ENCOUNTER 2025-01-29 18:44 | Outpatient (REF) | payer MEDICAID, SELFPAY ==
--- OUTSIDE RECORDS SUMMARY | 2025-01-29 10:45 | XMS_ITS | Encounter Summary ---
Author Organization [email or web address] [facility] Address [address] [facility] 7[address] [place] [address] Care Team Providers Care Expansion Envelope Maker Hand Name Role Phone Belgica Agrawal [facility] Primary Care Provider [phone] Encounter Details Date Type Department Care Team ([facility] st Contact Info) Description 01/29/2025 10:45 AM EDT Office Visit [facility] [address] [place], [place] [phone] Celia Pacheco MD [address] [place], [place] [phone] Vaginal discharge; Discharge from the vagina Social History Tobacco Use Types Packs/Day Years Used Date Smoking Tobacco: Every Day Cigarettes Smokeless Tobacco: Never Depression Answer Date Recorded Patient Health Questionnaire-9 Score 12 02/20/2023 Patient Health Questionnaire-9 Score 12 02/20/2023 Last PHQ-9: Questionnaire Data Not on file 1 04/22/2022 Housing Stability Answer Date Recorded What is your housing situation today? I have raz sing 07/08/[address] you li ve. Do you have problems with any of the following? Pests such as bugs, ants, or mice 07/08/2024 Food Insecurity Answer Date Recorded Within the past 12 months, y ou worried that your food would run out before you got money to buy more: Never True 07/08/2024 Within the past 12 months,th e food you bought just didn't last and you didn't have enough money to get more: Never True Transportation Answer Date Recorded In the past 12 months, has l ack of transportation kept you from medical appts, meetings, work or from getting things needed for daily living? No 07/08/2024 Utilities Answer Date Recorded In the past 12 months, has t he electric, gas, oil or water company threatened to shut off services in your home? No 07/08/2024 Depression Answer Date Recorded Patient Health Questionnaire-2 Score 4 02/20/2023 Internet Access Answer Date Recorded Internet Access Q1 Yes 07/08/2024 Internet Access Q2 Not on file 07/08/2024 Comments Unknown Sex and Gender Information Value Date Recorded Sex Assigned at Female 02/14/2022 10:20 AM EDT Legal Sex Female 10:20 AM EDT Gender Identity Female 02/14/2022 10:20 AM EDT Sexual Orientation Straight 12/28/2023 4: 00 PM EDT documented as of this encounter Last Filed Vital Signs Vital Sign Reading Time Taken Comments Blood Pressure 110/68 01/29/2025 10:51 AM EDT Pulse 72 01/29/2025 10:51 AM EDT Temperature 33.7 C (92.6 F) 01/29/2025 10:51 AM EDT Respiratory Rate 16 01/29/2025 10:51 AM EDT Oxygen Saturation 98% 01/29/2025 10:51 AM EDT Inhaled Oxygen Concentration - - Weight 73.3 kg (161 lb 9.6 oz) 01/29/2025 10:51 AM EDT Height 160 cm (5' 3 ) 01/29/2025 10:51 AM EDT Body Mass Index 28.63 01/29/2025 10:51 AM EDT documented in this encounter Progress Notes * Celia Greebnerg MD - 01/29/2025 10:45 AM EDT SUBJECTIVE: Celina Zimmerman is a 29 y.o. year old female who presents for acute visit . Acute Concerns: - Reports thick, white vaginal discharge with odor and mild burning sensation in vaginal area, onset after unprotected sexual intercourse on January - Describes mild lower abdominal bloating and discomfort, not severe pain - Denies vaginal itching - Denies pain or burning with urination - Reports frequent urination, but normal volume - History of similar episode of thick, white vaginal discharge in the past, previously tested for chlamydia - Underwent abdominal surgery four months ago, still experiencing some postoperative abdominal inflammation Social History Social History Narrative Not on file Problem List[1] Family History[2] Review of Systems Constitutional: Negative. HENT: Negative. Respiratory: Negative. Cardiovascular: Negative. Genitourinary: Positive for dysuria and vaginal discharge. Negative for decreased urine volume, difficulty urinating, dyspareunia, enuresis, flank pain, frequency, genital sores, hematuria, menstrualproblem, pelvic pain, urgency, vaginal bleeding and vaginal pain. OBJECTIVE: Vitals: 01/29/25 1051 BP: 110/68 BP Location: Left arm Patient Position: Sitting BP Cuff Size: Adult Pulse: 72 Resp: 16 Temp: 92.6 ??F (33.7 ??C) TempSrc: Temporal SpO2: 98% Weight: 161 lb 9.6 oz (73.3 kg) Height: 5' 3 (1.6 m) Physical Exam Constitutional: Appearance: Normal appearance. Cardiovascular: Rate and Rhythm: Normal rate and regular rhythm. Pulmonary: Effort: Pulmonary effort is normal. Breath sounds: Normal breath sounds. Abdominal: General: Abdomen is flat. Palpations: Abdomen is soft. Genitourinary: Vagina: Vaginal discharge present. Musculoskeletal: Right lower leg: No edema. Left lower leg: No edema. Neurological: Mental Status: She is alert. Follow Up: No follow-ups on file. Medications Ordered Prior to Encounter[3] Problem List Items Addressed This Visit Vaginal discharge Vaginal discharge with associated burning sensation and mild odor. Differential diagnosis includes possible vaginal infection; chlamydia, gonorrhea, HIV, syphilis, and hepatitis considered. - Ordered vaginal swab for chlamydia and other sexually transmitted infections. Ordered urinalysis and urine culture. Will review results and initiate appropriate treatment based on findings. Relevant Orders POCT Urinalysis (Completed) Bacterial Vaginosis Panel Chlamydia/N. Gonorrhoeae RNA, TMA, Vaginal Culture, Urine, Routine Other Visit Diagnoses Discharge from the vagina [1] Patient Active Problem List Diagnosis Adjustment disorder with mixed emotional features Depressive disorder Obese Migraine with aura, not intractable Tobacco dependence Cannabis use, uncomplicated Anxiety Stress-related problem Housing problems Vaginal discharge [2] Family History Problem Relation Name Age of Onset Diabetes Mother Diabetes Mother's Sister Breast cancer Maternal Grandmother [3] Current Outpatient Medications on File Prior to Visit Medication Sig Dispense Refill amitriptyline (Elavil) 10 MG tablet Take 1 tablet (10 mg) by mouth at bedtime. 90 tablet 0 tiZANidine (Zanaflex) 2 MG tablet Take 1 tablet (2 mg) by mouth every 8 (eight) hours if needed formuscle spasms. (Patient not taking: Reported on 09/14/2022) 30 tablet 0 Current Facility-Administered Medications on File Prior to Visit Medication Dose Route Frequency Provider Last Rate Last Admin doxycycline (Adoxa) tablet 100 mg 100 mg Oral Once Leelee Canales RN documented in this encounter Miscellaneous Notes * Assessment & Plan Note - Celia Greenberg MD - 01/29/2025 2:01 PM EDT Associated Problem(s): Vaginal discharge Vaginal discharge with associated burning sensation and mild odor. Differential diagnosis includes possible vaginal infection; chlamydia, gonorrhea, HIV, syphilis, and hepatitis considered. - Ordered vaginal swab for chlamydia and other sexually transmitted infections. Ordered urinalysis and urine culture. Will review results and initiate appropriate treatment based on findings. documented in this encounter Plan of Treatment Scheduled Orders Name Type Priority Associated Diagnoses Orde r Schedule Bacterial Vaginosis Panel Microbiology Routine Vaginal discharge Ordered: 01/29/2025 Chlamydia/N. Gonorrhoeae RNA, TMA, Vaginal Microbiology Routine Vaginal discharge Ordered: 01/29/2025 Culture, Urine, Routine Microbiology Routine Vaginal discharge Expected: 01/29/2025 (Approximate), Expires: 01/29/2026 documented as of this encounter Procedures Procedure Name Priority Date/Time Associated Diagnosis Comments POCT URINALYSIS DIPSTICK Routine 01/29/2025 11:10 AM EDT Vaginal discharge documented in this encounter Results * POCT Urinalysis (01/29/2025 11:10 AM EDT) Color, UA Yellow Clarity, UA Clear Glucose, UA Negative Bilirubin, UA Negative Ketones, UA Negative Spec Grav, UA 1.010 Blood, UA Negative Negative, None Detected pH, UA 6.0 Protein, UA Negative Urobilinogen, UA 0.2 Leukocytes, UA Negative Negative, Rare, Trace Nitrite, UA Negative Negative, None Detected Appearance, UA clear QC Media Lot # [id number] Lot# Expiration Date 14,026 Urine (Urine, Random) 01/29/2025 11:10 AM EDT Celia Greenberg MD POINT OF CARE TEST EN TER/EDIT ORDERABLES Final Result documented in this encounter Visit Diagnoses Diagnosis Vaginal discharge Leukorrhea, not specified as infective Discharge from the vagina Leukorrhea, not specified as infective documented in this encounter Additional Health Concerns Assessment Noted Time PHQ-9 Depression Total Score: 12 023 2:10 PM EST documented as of this encounter Care Teams Expansion Envelope Maker Hand Relationship Specialty Start Date End Date Belgica Agrawal FNP [address] [place] [id number] PCP - General Family Medicine 12/13/21 documented as of this encounter
--- OUTSIDE RECORDS SUMMARY | 2025-01-29 19:38 | XMS_ITS | Encounter Summary ---
Author Organization [employer] Address [address] [facility] [address] [place] [address] Care Team Providers Care Raw Scales Operator Name Role Phone Belgica Agrawal [facility] Primary Care Provider [phone] Encounter Details Date Type Department Care Team (Latest Contact Info) Description 01/29/2025 Travel Social History Tobacco Use Types Packs/Day Years Used Date Smoking Tobacco: Every Day Cigarettes Smokeless Tobacco: Never Depression Answer Date Recorded Patient Health Questionnaire-9 Score 12 02/20/2023 Patient Health Questionnaire-9 Score 12 02/20/2023 Last PHQ-9: Questionnaire Data Not on file 1 04/22/2022 Housing Stability Answer Date Recorded What is your housing situation today? I have raz alma 07/08/[address] you li [...] as of this encounter Plan of Treatment Not on file documented as of this encounter Visit Diagnoses Not on filedocumented in this encounter Additional Health Concerns Assessment Noted Time PHQ-9 Depression Total Score: 12 023 2:10 PM EST documented as of this encounter Care Teams Raw Scales Operator Relationship Specialty Start Date End Date Belgica Agrawal FNP [address] [place] [address] PCP - General Family Medicine 12/13/21 documented as of this encounter
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
[2025-01-30 04:38] LABS: Bacterial Vaginosis PCR POSITIVE (Negative); Candida Group PCR NOT DETECTED (Not Detect); Candida glab krusei PCR NOT DETECTED (Not Detect); Trichomonas vaginalis PCR NOT DETECTED (Not Detect)
[2025-01-30 05:09] LABS: CT PCR NOT DETECTED (Not Detect.); NG PCR NOT DETECTED (Not Detect.)
== END 2025-01-29 18:45 | disposition home or self-care (01) ==
LOC: HO.HHCLNP 18:44
PROVIDERS: Visit Provider Internal Medicine
DX: N89.8 Other specified noninflammatory disorders of vagina (principal); Z20.2 Contact with and (suspected) exposure to infections with a predominantly sexual mode of transmission
CPT/HCPCS: 81515; 87086; 87147; 87491; 87591

== ENCOUNTER 2025-04-05 09:09 | Outpatient (REF) | payer MEDICAID, SELFPAY ==
--- OUTSIDE RECORDS SUMMARY | 2025-04-04 14:00 | XMS_ITS | Encounter Summary ---
Author Organization [employer] [facility] Address [address] [place] [address] [address] [place] [address] Care Team Providers Care Materials Analyst Name Role Phone Belgica Agrawal Primary Care Provider [phone] Reason for Referral * Cardiology (Routine) - Pending Review Specialty Diagnoses / Procedures Referred By Paul scott Referred To Contact Cardiology Diagnoses Palpitation Procedures Holter monitor - 48 hour Belgica Agrawal FNP [address] [place] [address] Phone: tel: fax: [facility] [address] [place] [phone] Phone: tel: fax: Referral ID Status Reason Start Date Expiration Date V isits Requested Visits Authorized [id number] Pending Review 04/04/2025 04/04/2026 1 1 Reason for Visit * Reason Comments Irregular Heart Beat Encounter Details Date Type Department Care Team (Late st Contact Info) Description 04/04/2025 2:00 PM EST Office Visit [facility] [address] [place], [place] [phone] Belgica Agrawal FNP [address] [place], [place] [phone] Palpitation (Primary Dx); Encounter for immunization; Arthralgia of both hands; Healthcare maintenance Social History Tobacco Use Types Packs/Day Years [...] housing situation today? I have raz marquez 07/08/[address] you li [...] Access Q2 Not on file 07/08/2024 Comments No Sex and Gender Information Value Date Recorded Sex Assigned at Female 02/14/2022 10:20 AM EDT Legal Sex Female 10:20 AM EDT Gender Identity Female 02/14/2022 10:20 AM EDT Sexual Orientation Straight 12/28/2023 4: 00 PM EDT documented as of this encounter Last Filed Vital Signs Vital Sign Reading Time Taken Comments Blood Pressure 109/72 04/04/2025 2:27 PM EST Pulse 62 04/04/2025 2:27 PM EST Temperature 36.6 C (97.9 F) 04/04/2025 2:27 PM EST Respiratory Rate 20 04/04/2025 2:27 PM EST Oxygen Saturation - - Inhaled Oxygen Concentration - - Weight 73.5 kg (162 lb) 04/04/2025 2:27 PM EST Height 160 cm (5' 3 ) 04/04/2025 2:27 PM EST Body Mass Index 28.7 04/04/2025 2:27 PM EST documented in this encounter Plan of Treatment Upcoming Encounters Date Type Department Care Team (Late st Contact Info) Description 05/09/2025 11:30 AM EST Office Visit [facility] [address] [place] [address] PhalBelgica boyer, CLINICAL INFORMATICS PHYSICIAN [address] [place] [address] Scheduled Orders Name Type Priority Associated Diagnoses Orde r Schedule Holter monitor - 48 hour Cardiac Services Routine Palpitation Expected: 04/04/2025 (Approximate), Expires: 04/04/2027 XR Hand 3+ Views Left Imaging Routine Arthralgia of both hands Expected: 04/04/2025, Expires: 04/04/2026 XR Hand 3+ Views Right Imaging Routine Arthralgia of both hands Expected: 04/04/2025, Expires: 04/04/2026 Lipid Panel, Standard Lab Routine Healthcare maintenance Expected: 04/04/2025 (Approximate), Expires: 04/04/2026 Hemoglobin A1c Lab Routine Healthcare maintenance Expected: 04/04/2025 (Approximate), Expires: 04/04/2026 TSH with Reflex to Free T4 Lab Routine Healthcare maintenance Expected: 04/04/2025 (Approximate), Expires: 04/04/2026 Comprehensive Metabolic Panel Lab Routine Healthcare maintenance Expected: 04/04/2025 (Approximate), Expires: 04/04/2026 CBC auto differential Lab Routine Healthcare maintenance Expected: 04/04/2025, Expires: 04/04/2026 HIV-1/2 Antigen and Antibodies, Fourth Generation, with Reflexes Lab Routine Healthcare maintenance Expected: 04/04/2025 (Approximate), Expires: 04/04/2026 RPR (Monitor) with Reflex to Titer Lab Routine Healthcare maintenance Expected: 04/04/2025, Expires: 04/04/2026 Hepatitis C Antibody with Reflex to HCV, RNA, Quantitative, Real-Time PCR Lab Routine Healthcare maintenance Expected: 04/04/2025, Expires: 04/04/2026 Chlamydia/Trichomonas/ Neisseria gonorrhoeae, PCR, Urine Lab Routine Healthcare maintenance Expected: 04/04/2025 (Approximate), Expires: 04/04/2026 documented as of this encounter Visit Diagnoses Diagnosis Palpitation- Primary Palpitations Encounter for immunization Arthralgia of both hands Healthcare maintenance documented in this encounter Additional Health Concerns Assessment Noted Time PHQ-9 Depression Total Score: 12 023 2:10 PM EST documented as of this encounter Care Teams Materials Analyst Relationship Specialty Start Date End Date Belgica Agrawal FNP [address] [place] [phone] PCP - General Family Medicine 12/13/21 documented as of this encounter
--- NOTE | ~2025-04-05 | XR_ITS ---
Exam: XR HAND 3 VIEWS BILATERAL, bilateral hand x-rays TECHNIQUE: AP, lateral, and oblique views upper extremity, bilateral hands INDICATION: Arthalgia of bilat hand COMPARISON: Right hand July 04, 2024 and left hand June 03, 2023 FINDINGS: RIGHT HAND: Bone mineral density is within normal limits. Joint spaces are preserved. No erosions are identified. There are no osteophytes. There is no joint diastases or malalignment. LEFT HAND: Bone mineral density is within normal limits. Joint spaces are preserved. No erosions are identified. There are no osteophytes. There is no joint diastases or malalignment. XR/XR Hand Bilat min 3v IMPRESSION: Right hand: Unremarkable right hand, stable Left hand: Unremarkable left hand, stable Electronically signed by: Joby Yi MD 04/07/2025 10:27 AM [facility]
--- OUTSIDE RECORDS SUMMARY | 2025-04-05 09:13 | XMS_ITS | Clinical Summary ---
Author Organization [employer] Address [address] [facility] [address] [place] [address] Care Team Providers Care Director Of Business Services Name Role Phone Belgica Agrawal [facility] Primary Care Provider [phone] Allergies No known active allergies Medications * [...] decrease symptoms. Referral placed on 02/22/23 to [facility]. Celina said she missed their call and will call them back to make appointment. At this time Celina Zimmerman meets criteria for Visit Diagnoses: Problem List Items Addressed This Visit Other Depressive disorder Anxiety Stress-related problem Housing problems Patient ready to address current needs Yes Strengths include readiness to change and address problem PLAN: 1. Follow up with [facility] [place]: Not recommended for follow-up 2. Patient goal is to be connected with services and feel less depressed. 3. Behavioral Recommendations a. Reconnect with [facility] b. Utilize coping skills provided to [...] address problem PLAN: 1. Follow up with [facility] [place]: Recommended for follow-up: Scheduled follow-up due to [...] decrease symptoms. Referral placed on 02/22/23 to [facility]. Celina said she missed their call and will call them back to make appointment. At this time Celina Zimmerman meets criteria for Visit Diagnoses: Problem List Items Addressed This Visit Other Depressive disorder Anxiety Stress-related problem Housing problems Patient ready to address current needs Yes Strengths include readiness to change and address problem PLAN: 1. Follow up with [facility] [place]: Not recommended for follow-up 2. Patient goal is to be connected with services and feel less depressed. 3. Behavioral Recommendations a. Reconnect with [facility] b. Utilize coping skills provided to [...] address problem PLAN: 1. Follow up with [facility] [place]: Recommended for follow-up: Scheduled follow-up due to [...] decrease symptoms. Referral placed on 02/22/23 to [facility]. Celina said she missed their call and will call them back to make appointment. At this time Celina Zimmerman meets criteria for Visit Diagnoses: Problem List Items Addressed This Visit Other Depressive disorder Anxiety Stress-related problem Housing problems Patient ready to address current needs Yes Strengths include readiness to change and address problem PLAN: 1. Follow up with [facility] [place]: Not recommended for follow-up 2. Patient goal is to be connected with services and feel less depressed. 3. Behavioral Recommendations a. Reconnect with [facility] b. Utilize coping skills provided to [...] address problem PLAN: 1. Follow up with [facility] [place]: Recommended for follow-up: Scheduled follow-up due to [...] decrease symptoms. Referral placed on 02/22/23 to [facility]. Celina said she missed their call and will call them back to make appointment. At this time Celina Zimmerman meets criteria for Visit Diagnoses: Problem List Items Addressed This Visit Other Depressive disorder Anxiety Stress-related problem Housing problems Patient ready to address current needs Yes Strengths include readiness to change and address problem PLAN: 1. Follow up with [facility] [place]: Not recommended for follow-up 2. Patient goal is to be connected with services and feel less depressed. 3. Behavioral Recommendations a. Reconnect with [facility] b. Utilize coping skills provided to [...] address problem PLAN: 1. Follow up with [facility] [place]: Recommended for follow-up: Scheduled follow-up due to [...] Encounters Date Type Department Care Team Description 04/04/2025 2:00 PM EST Office Visit [facility] [address] [place] [address] Belgica Agrawal FNP Palpitation (Primary Dx); Encounter for immunization; Arthralgia of both hands; Healthcare maintenance 04/04/2025 Travel 04/03/2025 Telephone [facility] [address] [place] [address] Belgica Agrawal FNP Nurse Triage 01/30/2025 Results Follow-Up [address] [address] Celia Pacheco MD POCT Urinalysis, Bacterial Vaginosis Panel, Chlamydia/N. Gonorrhoeae RNA, TMA, Vaginal, Culture, Urine, Routine 01/30/2025 Orders Only [address] [address] Celia Pacheco MD Bacterial vaginosis (Primary Dx) 01/29/2025 10:45 AM EDT Office Visit [address] [address] Celia Pacheco MD Vaginal discharge; Discharge from the vagina 01/29/2025 Travel from Last 3 Months Immunizations Immunization Administration Dates Next Due DTaP 02/04/2000, 8,01/17/1997,03/06,1996 HPV, Quadrivalent 09/01/2008,03/31/2008,01/30/20 08 Hep B, Adolescent or Pediatric 08/06/1997,1995,1996 Hib (HbOC) 04/25/1997, 7,1996,03/17 IPV 02/04/2000, 7,1996,03/17 Influenza injectable quadriv alent IIV4 with preservative 02/04/2016 Influenza injectable quadriv alent preservative free 02/13/2021,01/08/2014 Influenza, IIV3, injectable 01/30/2008 Influenza, seasonal, injecta ble, preservative free 04/04/2025 MMR 09/26/2019, 4,07/27/1998,04/08 Meningococcal MPSV4 03/31/2008 Pfizer Covid-19 Vaccine 12+ 02/05/2021, 1 Pfizer Covid-19 Vaccine 12+ Bivalent 09/14/2022 TD (adult), 2 Lf tetanus tox oid, preservative free, adsorbed 12/11/2007 Tdap 12/11/2020, 0,07/09/2019,07/02 Varicella 12/11/2007,04/09/1997 Family History Medical History Relation [...] 20 04/04/2025 2:27 PM EST Oxygen Saturation 98% 01/29/2025 10:51 AM EDT Inhaled Oxygen Concentration - - Weight 73.5 kg (162 lb) 04/04/2025 2:27 PM EST Height 160 cm (5' 3 ) 04/04/2025 2:27 PM EST Body Mass Index 28.7 04/04/2025 2:27 PM EST Plan of Treatment Upcoming Encounters Date Type Department Care Team (Late st Contact Info) Description 05/09/2025 11:30 AM EST Office Visit [facility] [address] [place], [place] [phone] Belgica Agrawal FNP [address] [place], [place] [phone] Health Maintenance Due Date Last Done Comments Disability Screening 1996 Family Planning (PISQ) 02/02/2011 Pneumococcal Vaccine: Pediatrics (0 to 5 Years) and At-Risk Patients (6 to 49) Years (1 of 2 - PCV) 02/02/2015 Depression Monitoring 08/21/2023 02/20/2023, 023 COVID-19 Vaccine ( season) 2024 04/03/2023, 09/14/2022, 02/05/2021, Additional history exists SDOH Screening 07/08/2025 07/08/2024 Pap Smear 09/29/2025 09/29/2022 Alcohol/Substance Use Screening 04/04/2026 04/04/2025 Tobacco Screening 04/04/2026 04/04/2025 Lipid Panel 09/15/2027 09/14/2022, 05/20/2020 DTaP/Tdap/Td Vaccines [...] C Screening Completed 08/29/2024 , 09/14/2022, 05/20/2020 Influenza Vaccine Completed 04/04/2025, , 02/04/2016, Additional history exists Hepatitis A Vaccines Aged Out No long [...] Procedure Name Priority Date/Time Associated Diagnosis Comments CULTURE, URINE, ROUTINE Routine 01/29/2025 11:29 AM EDT Vaginal discharge POCT URINALYSIS DIPSTICK Routine 01/29/2025 11:10 AM EDT Vaginal discharge CHLAMYDIA/N. GONORRHOEAE RNA, TMA, UROGENITAL Routine 01/29/2025 10:57 AM EDT Vaginal discharge BACTERIAL VAGINOSIS PANEL Routine 01/29/2025 10:57 AM EDT Vaginal discharge HEPATITIS C ANTIBODY ([place] [facility]) Routine 08/29/2024 HIV ANTIBODY/ANTIGEN ([place] [facility]) Routine 08/29/2024 THINPREP IMAGING PAP AND HPV MRNA E6/E7 WITH REFLEX TO HPV 16,18/45 Routine 09/29/2022 4:00 PM EDT Encounter for screening for cervical cancer LIPID PANEL, STANDARD Routine 09/14/2022 3:52 PM EDT Healthcare maintenance from Last 3 Months or Most Recently Relevant to Health Maintenance Results * Culture, Urine, Routine (01/29/2025 11:29 AM EDT) Urine Urine specimen obtained by clean catch procedure / Unknown 01/29/2025 11:29 AM EDT 01/29/2025 6:45 PM EDT Comment:[facility] - 01/31/2025 11:48 AM EDT Strep agalactiae (Grp B) Quant 10,000 to 50,000 cfu/mL Susc N/A Susceptibility not routinely performed on this isolate. Specimen Source: Urine clean catch us Celia Greenberg MD LAB MICROBIOLOGY - NERNJ ORDERABLES Final Result [facility] [address] [place] [address] [phone] * POCT Urinalysis (01/29/2025 11:10 AM EDT) [...] Media Lot # [id number] Lot# Expiration Date [id number] Urine (Urine, Random) 01/29/2025 11:10 AM EDT Celia Greenberg MD POINT OF CARE TEST EN TER/EDIT ORDERABLES Final Result * (ABNORMAL) Bacterial Vaginosis Panel (01/29/2025 10:57 AM EDT) TRICHOMONAS VAGINALIS DETECTION BY PCR NOT DETECTED Not Detect [facility] BACTERIAL VAGINOSIS DETECTION BY PCR POSITIVE(A) Negative [facility] Comment:The BV organism targ ets of the Xpert Xpress MVP test can becommensal in women; Xpert Xpress MVP positive results forbacterial vaginosis should be considered in conjunction withother clinical and patient information to determine thedisease status. Organisms that are not detected by the XpertXpress MVP test have also been reported to be associatedwith BV and aerobic vaginitis.The Xpert Xpress MVP test performance has not been evaluatedin patients under the age of 14. TONYA GROUP DETECTION BY PCR NOT DETECTED Not Detect [facility] Tonya glab krusei PCR NOT DETECTED Not Detect [facility] Swab Vaginal structure / Unknown 01/29/2025 10:57 AM EDT 01/29/2025 6:58 PM EDT Celia Greenberg MD LAB MICROBIOLOGY - [facility] NERAL ORDERABLES Final Result [facility] [address] [place] [address] [phone] * Chlamydia/N. Gonorrhoeae RNA, TMA, Vaginal (01/29/2025 10:57 AM EDT) CT PCR NOT DETECTED Not Detect. [facility] Comment:A not detected test result does not exclude the possibilityof infection because test results can be affected byimproper specimen collection, concurrent antibiotic therapy,or the number of organisms in the specimen which may bebelow the sensitivity of the test. As with many diagnostictests, results from the Xpert CT/NG assay should beinterpreted in conjunction with other laboratory andclinical data available to the clinician.Xpert CT/NG performance has not been evaluated in patientsless than 14 years of age. The assay should not be used forthe evaluationof suspected sexual abuse or for other medico-legalindications. Additional testing is recommended in anycircumstance when false positive or false negative resultscould lead to adverse medical, social or psychologicalconsequences. NG PCR NOT DETECTED Not Detect. [facility] Comment:A not detected test result does not exclude the possibilityof infection because test results can be affected byimproper specimen collection, concurrent antibiotic therapy,or the number of organisms in the specimen which may bebelow the sensitivity of the test. As with many diagnostictests, results from the Xpert CT/NG assay should beinterpreted in conjunction with other laboratory andclinical data available to the clinician.Xpert CT/NG performance has not been evaluated in patientsless than 14 years of age. The assay should not be used forthe evaluationof suspected sexual abuse or for other medico-legalindications. Additional testing is recommended in anycircumstance when false positive or false negative resultscould lead to adverse medical, social or psychologicalconsequences. Swab (Vaginal Swab) 01/29/2025 10:57 AM EDT 01/29/2025 6:58 PM EDT Celia Greenberg MD LAB MICROBIOLOGY - [facility] NERAL ORDERABLES Final Result [facility] [address] [place] [address] [phone] * Hepatitis C Antibody ([facility]) (08/29/2024) Hepatitis C Ab Nonreactive Blood 08/29/2024 [facility] Provider LAB BLOOD ORDERABLES Yoly l Result * HIV Ab/Ag ([facility]) (08/29/2024) HIV Ag/Ab Nonreactive Blood 08/29/2024 [facility] Provider MD LAB BLOOD ORDERABLES Edit ed Result - Final * Thinprep TIS PAP And HPV mRNA E6/E7 With Reflex To HPV 16,18/45 (09/29/2022 4:00 PM EDT) Clinical Information: 27 Y/O F ROUTINE PAP [facility] LMP: NONE GIVEN [facility] Prev. PAP: NONE GIVEN [facility] Prev. BX: NO [facility] SOURCE: None given [facility] Statement Of Adequacy: [facility] Comment: Satisfactory for evaluation. Endocervical/transformation zone component present. Interpretation/ Result: Negative for intraepithelial lesion or malignancy. [facility] Infection Shift in vaginal carlos manuel suggestive of bacterial vaginosis. [facility] Comment: This Pap test has been evaluated with computer assisted technology. [employer] Cytotechnologis t: [facility] Comment: NARANJO, CT(ASCP) CT screening location: [address] [address] (Always Message) [facility] Comment: EXPLANATORY NOTE: The Pap is [...] HPV nRNA E6/E7 Not Detected Not Detected [facility] [place] [facility] Comment: Methodology: Hot Pond Operator-Mediated Amplification This assay detects E6/E7 viral messenger RNA (mRNA) from 14 high-risk HPV types (16,18,31,33,35,39,45,51,52,56,58,59,66,68). Cervical sources are required for HPV testing. If a vaginal source from a patient who has had a total hysterectomy with removal of cervix was submitted, please contact the testing laboratory for alternative testing options. For additional information, please refer to http://education.Aventeon/faq/NNY579b6 (This link if provided for information/ educational purposes only.) Genital 09/29/2022 4:00 PM EDT 09/30/2022 2:53 AM EDT Belgica Agrawal [facility] LAB PATHOLOGY ORDERABLES Final Result [facility] [address], [place] [address] [employer] [facility] [place] [facility] [address] [place] [address] * (ABNORMAL) Lipid Panel, Standard (09/14/2022 3:52 PM EDT) Cholesterol, Total 171 <200 mg/dL [facility] [place] [facility] HDL Cholesterol 43(L) > OR = 50 mg/dL [facility] [place] [facility] Triglycerides 94 <150 mg/dL [facility] [place] [facility] LDL Cholesterol 109(H) mg/dL (calc) [employer] [facility] Comment: Reference range: <100 Desirable range <100 mg/dL for primary prevention; <70 mg/dL for patients with CHD or diabetic patients with > or = 2 CHD risk factors. LDL-C is now calculated using the Lilia calculation, which is a validated novel method providing better accuracy than the Friedewald equation in the estimation of LDL-C. Henry SHELBY et al. RACHID. 2013;310(19): 3280-8437 (http://education.TransGenRx/faq/OJD364) Chol/HDLC Ratio 4.0 <5.0 (calc) [facility] Non-HDL Cholesterol 128 <130 mg/dL (calc) [employer] [facility] Comment: For patients with diabetes plus 1 major ASCVD risk factor, treating to a non-HDL-C goal of <100 mg/dL (LDL-C of <70 mg/dL) is considered a therapeutic option. Blood Venous blood specimen / Unknown 09/14/2022 3:52 PM EDT 09/14/2022 3:53 PM EDT Belgica Agrawal [facility] LAB BLOOD ORDERABLES Final Res ult [facility] [address], [place] [address] [employer] [facility] [place] [facility] [address] [place] [address] from Last 3 Months or Most Recently Relevant to Health Maintenance Insurance [facility] C[facility] Care Teams Director Of Business Services Relationship Specialty Start Date End Date Belgica Agrawal FNP [facility] [place] [address] PCP - General Family Medicine 12/13/21
--- OUTSIDE RECORDS SUMMARY | 2025-04-05 09:13 | XMS_ITS | Encounter Summary ---
Author Organization [employer] Address [address] [facility] [facility] [address] [address] [place] [address] Care Team Providers Care Diesel Engine Erector Name Role Phone Belgica Agrawal [facility] Primary Care Provider [phone] Encounter Details Date Type Department Care Team (Latest Contact Info) Description 04/04/2025 Travel Social History Tobacco Use Types Packs/Day [...] Description 05/09/2025 11:30 AM EST Office Visit [facility] [address] [place] [address] Belgica Agrawal FNP [address] [place] [address] documented as of this encounter Visit Diagnoses Not on filedocumented in this encounter Additional Health Concerns Assessment Noted Time PHQ-9 Depression Total Score: 12 023 2:10 PM EST documented as of this encounter Care Teams Diesel Engine Erector Relationship Specialty Start Date End Date Belgica Agrawal FNP [address] [place] [id number] PCP - General Family Medicine 12/13/21 documented as of this encounter
--- OUTSIDE RECORDS SUMMARY | 2025-04-05 09:13 | XMS_ITS | Encounter Summary ---
Author Organization [employer] Address [address] [facility] [address] [place] [address] Care Team Providers Care Vision Care Associate Name Role Phone Belgica Agrawal Primary Care Provider [phone] Reason for Visit * Reason Onset Date Comments Nurse Triage 04/03/2025 Encounter Details Date Type Department Care Team ([facility] st Contact Info) Description 04/03/2025 Telephone [facility] [address] [place] [address] Belgica Agrawal FNP [address] [place], [place] [phone] Nurse Triage Social History Tobacco Use Types Packs/Day Years [...] the past 12 months, has t he INDOM, gas, oil or water [employer] threatened to shut off services in your [...] PM EDT documented as of this encounter Miscellaneous Notes * Telephone Encounter - Marilyn Olson RN - 04/03/2025 1:56 PM EST called pt to triage, spoke to pt. pt states has noticed for several weeks now, that her HR has beengoing up and down more than usual. pt states HR 53-65 with intermittent burning sensation in the chest. pt also states morning dry cough only, but no other illness symptoms noted. pt denies any current or severe symptoms. pt requesting appt to have checked and was given appt tomorrow with PCP at 2:00 for exam. advised home care: rest, fluids, avoid getting over- heated or dehydrated, and call back as needed. pt understands and agrees with plan. Protocol Used: Heart Rate and Heartbeat Questions (Adult) Protocol-Based Disposition: See in Office or Video Visit within 3 Days Positive Triage Question: * Palpitations and no improvement after following Care Advice * All higher-acuity triage questions were negative. Care Advice Discussed: * Reasons To Call Back - Chest pain, lightheadedness or difficulty breathing occurs - Heart beating over 140 beats / minute - More than 3 extra or skipped beats / minute - You become worse * Telephone Encounter - Marlon Burks - 04/03/2025 1:14 PM EST Symptoms: Dizziness, Low Blood Pressure - Caller Reports Outcome: Talk to a nurse or provider within 15 minutes Reason: Trouble walking documented in this encounter Plan of Treatment Upcoming Encounters Date Type Department Care Team (Late st Contact Info) Description 05/09/2025 11:30 AM EST Office Visit [facility] [address] [place] [address] Belgica Agrawal FNP [address] [place] [address] documented as of this encounter Visit Diagnoses Not on filedocumented in this encounter Additional Health Concerns Assessment Noted Time PHQ-9 Depression Total Score: 12 023 2:10 PM EST documented as of this encounter Care Teams Vision Care Associate Relationship Specialty Start Date End Date Belgica Agrawal FNP [address] [place] [id number] PCP - General Family Medicine 12/13/21 documented as of this encounter
[2025-04-05 09:33] LABS: MANUAL DIFF FLAG NO
[2025-04-05 10:06] LABS: Hematocrit 43.5 % (37.0-47.0); Hemoglobin 14.8 g/dl (12.0-16.0); Imm Gran Abs Auto 0.01 X10*3/uL (0.00-0.03); Imm Gran Pct Auto 0.1 % (0.0-0.4); Lymphocytes Absolute Auto 2.5 X10*3/uL (1.2-4.9); Mean Corpuscular HGB Conc 34.0 g/dl (31.0-35.0); Mean Corpuscular Hemoglobin 32.4 pg (27.0-33.0); Mean Corpuscular Volume 95.2 fL (80.0-98.0); NRBC Abs Auto 0.000 X10*3/uL (0.0-0.012); NRBC Pct Auto 0.0 /100WBC (0.0-0.2); Platelet Count 275 X10*3/uL (160-400); Red Blood Count 4.57 X10*6/uL (4.20-5.50); White Blood Count 7.2 X10*3/uL (4.8-10.8)
[2025-04-05 10:51] LABS: Alanine Aminotransferase 8 U/L (0-31); Albumin Level 4.2 g/dL (3.5-5.0); Alkaline Phosphatase 71 U/L (39-117); Anion Gap 12 (12-20); Aspartate Amino Transferase 17 U/L (5-31); Blood Urea Nitrogen 13 mg/dL (9-16); Calcium 9.2 mg/dL (8.4-10.2); Carbon Dioxide 25 mmol/L (22-29); Chloride 108 mmol/L (96-108); Cholesterol 161 mg/dL (<200); Estimated Glomerular Filt Rate > 60; HDL Cholesterol 48 mg/dL (>40); Potassium 4.4 mmol/L (3.3-5.1); Sodium 141 mmol/L (135-145); Total Protein 6.9 g/dL (6.5-8.0); Triglycerides 69 mg/dL (<150)
[2025-04-05 11:58] LABS: CT PCR Urine NOT DETECTED (Not Detect.); NG PCR Urine NOT DETECTED (Not Detect.)
[2025-04-07 04:11] LABS: HIV Num 1 0.06 S/CO (0.00-0.99); ~HepC Num1 0.08 S/CO (0.00-0.79); ~Hepatitis C Antibody Nonreactive (Nonreactive)
== END 2025-04-05 09:10 | disposition home or self-care (01) ==
LOC: HO.LAB 09:09
PROVIDERS: PCP Registered Nurse; Visit Provider Registered Nurse
DX: Z00.00 Encounter for general adult medical examination without abnormal findings (principal); Z20.2 Contact with and (suspected) exposure to infections with a predominantly sexual mode of transmission; Z11.4 Encounter for screening for human immunodeficiency virus [HIV]; Z11.59 Encounter for screening for other viral diseases; M25.541 Pain in joints of right hand; M25.542 Pain in joints of left hand
CPT/HCPCS: 73130; 80053; 80061; 83036; 84443; 85025; 86592; 86803; 87389; 87491; 87591

== ENCOUNTER → 2025-04-05 09:37 | Outpatient (BNV) | payer MEDICAID, SELFPAY | PROVIDERS: PCP Registered Nurse; Visit Provider Radiology Diagnostic Radiology | DX: M79.642 Pain in left hand (principal); M79.641 Pain in right hand | CPT/HCPCS: 73130 ==

== ENCOUNTER → 2025-04-15 11:01 | Outpatient (REF) | payer MEDICAID, SELFPAY ==
--- OUTSIDE RECORDS SUMMARY | 2025-04-15 14:58 | XMS_ITS | Clinical Summary ---
Author Organization [employer] Address [address] [facility] [address] [place] [address] Care Team Providers Care Production Clerk Name Role Phone Belgica Agrawal [facility] Primary Care Provider [phone] Allergies No known active allergies Medications * [...] Active Problems Problem Noted Date Diagnosed Date Nondisp fx shaft fifth metac arpal bone right hand w/routine heal 04/06/2025 Assessment & Plan (04/06/2025 11:39 AM EST): - History of nondisplaced fracture of shaft of 5th metacarpal bone right hand w/ routine healing: followed by [facility] in 2022 Bilateral hand pain 04/06/2025 Assessment & Plan (04/06/2025 11:49 AM EST): - History of right hand fracture in 2022 (non-displaced fx shaft 5th metacarpal bone) - June 2023: consult with [facility] (Dr. Dent) for left hand pain and swelling. Suspected tendinitis. Treatment: velcro wrist splint with activity, steroid injection of the ECU tendon. - NCS/EMG bilat upper extremities ordered June 2023 through Ortho - do not see results available in record - Plan: Check XR, POC pending results Palpitation 04/06/2025 Assessment & Plan (04/06/2025 11:49 AM EST): - Palpitations with episodes of bradycardia noted on personal heart rate monitor, associated with intermittent dizziness. - EKG in office demonstrated sinus arrhythmia with HR 60 bpm. No T-wave or ST-elevation - Ordered ambulatory cardiac monitoring for 2 days to evaluate heart rhythm. Will review results in follow-up appointment. - ED/urgent care precautions reviewed Healthcare maintenance 04/06/2025 Assessment & Plan (04/06/2025 11:50 AM EST): - Ordered routine lab testing including asymptomatic STI screening Anxiety 02/17/2023 Assessment & Plan (03/20/2023 12:50 [...] decrease symptoms. Referral placed on 02/22/23 to [facility]. Celina said she missed their call and will call them back to make appointment. At this time Celinakarishma Lindo Vladislav Zimmerman meets criteria for Visit Diagnoses: Problem List Items Addressed This Visit Other Depressive disorder Anxiety Stress-related problem Housing problems Patient ready to address current needs Yes Strengths include readiness to change and address problem PLAN: 1. Follow up with [facility]: Not recommended for follow-up 2. Patient goal is to be connected with services and feel less depressed. 3. Behavioral Recommendations a. Reconnect with [facility] b. Utilize coping skills provided to [...] address problem PLAN: 1. Follow up with [facility]: Recommended for follow-up: Scheduled follow-up due to [...] decrease symptoms. Referral placed on 02/22/23 to [facility]. Celina said she missed their call and will call them back to make appointment. At this time Celina Zimmerman meets criteria for Visit Diagnoses: Problem List Items Addressed This Visit Other Depressive disorder Anxiety Stress-related problem Housing problems Patient ready to address current needs Yes Strengths include readiness to change and address problem PLAN: 1. Follow up with [facility]: Not recommended for follow-up 2. Patient goal [...] address problem PLAN: 1. Follow up with [facility]: Recommended for follow-up: Scheduled follow-up due to [...] with therapist Denies SI/HI/thoughts of self harm Resolved Problems Problem Noted Date Diagnosed Date Resolved Date Vaginal discharge 01/29/2025 04/06/2025 Assessment & Plan (01/29/2025 2:01 PM EDT): Vaginal discharge with associated burning sensation and mild odor. Differential diagnosis includes possible vaginal infection; chlamydia, gonorrhea, HIV, syphilis, and hepatitis considered. - Ordered vaginal swab for chlamydia and other sexually transmitted infections. Ordered urinalysis and urine culture. Will review results and initiate appropriate treatment based on findings. Stress-related problem 02/17/202304/06 Assessment & Plan (03/20/2023 12:50 PM EST): [...] decrease symptoms. Referral placed on 02/22/23 to [facility]. Celina said she missed their call and will call them back to make appointment. At this time Celina Zimmerman meets criteria for Visit Diagnoses: Problem List Items Addressed This Visit Other Depressive disorder Anxiety Stress-related problem Housing problems Patient ready to address current needs Yes Strengths include readiness to change and address problem PLAN: 1. Follow up with [facility]: Not recommended for follow-up 2. Patient goal [...] address problem PLAN: 1. Follow up with [facility]: Recommended for follow-up: Scheduled follow-up due to SI thougths (w no plan) 2. Patient goal is to start therapy and be able to manage her children tantrums 3. Behavioral Recommendations a. OP referral for individual therapy b. Referral for Care Management c. Incorporate self-care and mindfulness techniques to decrease symptoms Housing problems 02/17/2023 04/06/2025 Assessment & Plan (03/20/2023 12:50 PM EST): [...] decrease symptoms. Referral placed on 02/22/23 to [facility]. Celina said she missed their call and will call them back to make appointment. At this time Celina Zimmerman meets criteria for Visit Diagnoses: Problem List Items Addressed This Visit Other Depressive disorder Anxiety Stress-related problem Housing problems Patient ready to address current needs Yes Strengths include readiness to change and address problem PLAN: 1. Follow up with [facility]: Not recommended for follow-up 2. Patient goal [...] address problem PLAN: 1. Follow up with [facility]: Recommended for follow-up: Scheduled follow-up due to SI thougths (w no plan) 2. Patient goal is to start therapy and be able to manage her children tantrums 3. Behavioral Recommendations a. OP referral for individual therapy b. Referral for Care Management c. 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 11/13/2014 04/06/2025 Obese 05/02/2014 04/06/2025 Encounters Date Type Department Care Team Description 04/04/2025 2:00 PM EST Office Visit [facility] [address] [place], [place] [phone] Belgica Agrawal FNP Palpitation (Primary Dx); Encounter for immunization; Arthralgia of both hands; Healthcare maintenance; Closed nondisplaced fracture of shaft of fifth metacarpal bone of right hand with routine healing, subsequent encounter; Bilateral hand pain 04/04/2025 Travel 04/03/2025 Telephone [facility] [address] [place] [address] Belgica Agrawal FNP Nurse Triage 01/30/2025 Results Follow-Up [address] [address] Celia Pacheco MD POCT Urinalysis, Bacterial Vaginosis Panel, Chlamydia/N. Gonorrhoeae RNA, TMA, Vaginal, Culture, Urine, Routine 01/30/2025 Orders Only [address] [address] Celia Pacheco MD Bacterial vaginosis (Primary Dx) 01/29/2025 10:45 AM EDT Office Visit [address] [address] Celia Pacheco MD Vaginal discharge; Discharge from [...] Comments Breast cancer Maternal Grandmother Diabetes Mother palpitations Mother Diabetes Mother's Sister Relation Name Status Comments Maternal Grandmother Mother Mother's Sister Social History Tobacco Use Types Packs/Day Years Used Date Smoking Tobacco: Every Day Cigarettes Smokeless Tobacco: Never Tobacco Cessation:Ready to Q uit: Not Asked; Counseling Given: Not Answered Depression Answer Date Recorded Patient Health Questionnaire-9 Score 9 04/06/2025 Patient Health Questionnaire-9 Score 9 04/06/2025 Last PHQ-9: Questionnaire Data Not on file 1 06/07/2024 Housing Stability Answer Date Recorded What is your housing situation today? I have raz mraquez 07/08/[address] you li [...] Answer Date Recorded Patient Health Questionnaire-2 Score 2 04/06/2025 Internet Access Answer Date Recorded Internet Access [...] Description 05/09/2025 11:30 AM EST Office Visit [facility] [address] [place] [address] Belgica Agrawal, CESIA [address] [place] [address] Health Maintenance Due Date Last Done Comments Disability Screening 1995 Family Planning (PISQ) 02/02/2011 Pneumococcal Vaccine: Pediatrics (0 to 5 Years) and At-Risk Patients (6 to 49) Years (1 of 2 - PCV) 02/02/2015 COVID-19 Vaccine ( season) 2024 04/03/2023, 09/14/2022, 02/05/2021, Additional history exists SDOH Screening 07/08/2025 07/08/2024 Pap Smear 09/29/2025 09/29/2022 Depression Monitoring 10/05/2025 04/06/2025, 025 Alcohol/Substance Use Screening 04/04/2026 04/04/2025 Tobacco Screening 04/04/2026 04/04/2025 Lipid Panel 04/05/2030 04/05/2025, 0504/2022, 05/20/2020 DTaP/Tdap/Td Vaccines (9 - Td or [...] topic HPV Vaccines Completed 09/01/2008, 03/17, 01/30/2008 Influenza Vaccine Completed 04/04/2025, , 02/04/2016, Additional history exists HIV Screening Completed 04/05/2025, 08/15, 09/14/2022, Additional history exists Hepatitis C Screening Completed 04/05/2025 , 08/29/2024, 09/14/2022, Additional history exists Hepatitis A Vaccines Aged [...] Procedure Name Priority Date/Time Associated Diagnosis Comments ECG 12-LEAD Routine 04/06/2025 11:56 AM EST Palpitation XR HAND 3+ VIEWS BILATERAL Routine 04/05/2025 9:40 AM EST HEPATITIS C AB W/REFL TO HCV RNA, QN, PCR Routine 04/05/2025 9:32 AM EST Healthcare maintenance RPR (MONITOR) W/REFL TITER Routine 04/05/2025 9:32 AM EST Healthcare maintenance HIV 1/2 ANTIGEN/ANTIBODY, FOURTH GENERATION W/RFL Routine 04/05/2025 9:32 AM EST Healthcare maintenance CBC WITH AUTO DIFFERENTIAL Routine 04/05/2025 9:32 AM EST Healthcare maintenance COMPREHENSIVE METABOLIC PANEL Routine 04/05/2025 9:32 AM EST Healthcare maintenance TSH W/REFLEX TO FT4 Routine 04/05/2025 9 :32 AM EST Healthcare maintenance HEMOGLOBIN A1C Routine 04/05/2025 9:32 AM EST Healthcare maintenance LIPID PANEL, STANDARD Routine 04/05/2025 9:32 AM EST Healthcare maintenance CHLAMYDIA/TRICHOMONAS/ NEISSERIA GONORRHOEAE, PCR, URINE Routine 04/05/2025 9:28 AM EST Healthcare maintenance CULTURE, URINE, ROUTINE Routine 01/29/2025 11:29 AM EDT Vaginal discharge POCT URINALYSIS DIPSTICK Routine 01/29/2025 11:10 AM EDT Vaginal discharge CHLAMYDIA/N. GONORRHOEAE RNA, TMA, UROGENITAL Routine 01/29/2025 10:57 AM EDT Vaginal discharge BACTERIAL VAGINOSIS PANEL Routine 01/29/2025 10:57 AM EDT Vaginal discharge THINPREP IMAGING PAP AND HPV MRNA E6/E7 WITH REFLEX TO HPV 16,18/45 Routine 09/29/2022 4:00 PM EDT Encounter for screening for cervical cancer from Last 3 Months or Most Recently Relevant to Health Maintenance Results * ECG 12 lead (04/06/2025 11:56 AM EST) Narrative Belgica Agrawal FNP - 04/06/2025 11:56 AM EST P/Pr: 100/134 ms QRS: 84 ms QT/Qtc: 452/452 ms HR: 60 bpm Sinus arrhythmia. No T-wave or ST elevation. Belgica CALLAWAY ECG ORDERABLES Final Result * XR Hand 3+Views Bilateral (04/05/2025 9:40 AM EST) Anatomical Region Laterality Modality Upper Extremities, Hand Bilateral Radiogra phic Imaging 04/05/2025 9:40 AM EST Narrative 04/07/2025 10:30 AM EST [place] [address] XRay Report Signed Patient: Celina Thompson MR#: [id number] : 1995 Acct:[id number] Age/Sex: 30 / F ADM Date: 04/05/25 Loc: .LAB Attending Dr: Belgica CALLAWAY Ordering Physician: Belgica Agrawal Date of Service: 04/05/25 Procedure(s): XR Hand Bilat min 3v Accession Number(s): [id number] cc: Belgica Agrawal Reason for Exam: Arthalgia of bilat hand Exam: XR HAND 3 VIEWS BILATERAL, bilateral hand x-rays TECHNIQUE: AP, lateral, and oblique views upper extremity, bilateral hands INDICATION: Arthalgia of bilat hand COMPARISON: Right hand July 04, 2024 and left hand June 03, 2023 FINDINGS: RIGHT HAND: Bone mineral density is within normal limits. Joint spaces are preserved. No erosions are identified. There are no osteophytes. There is no joint diastases or malalignment. LEFT HAND: Bone mineral density is within normal limits. Joint spaces are preserved. No erosions are identified. There are no osteophytes. There is no joint diastases or malalignment. XR/XR Hand Bilat min 3v IMPRESSION: Right hand: Unremarkable right hand, stable Left hand: Unremarkable left hand, stable Electronically signed by: Joby Yi MD 04/07/2025 10:27 AM EST Dictated By: Joby Yi MD Signed By: <Electronically signed by Joby Yi MD in OV> 04/07/25 1027 DD/ 0940 TD/TT: 04/05/25 0947 Aging Department Supervisor: Procedure Note Doncarloster, Ernie - 04/07/[address] [address] XRay Report Signed Patient: Celina Thompson [facility]#: [id number] : 1995Acct:[id number] Age/Sex: 30 / FADM Date: 04/05/25 Loc: HO.LAB Attending Dr: Belgica CALLAWAY Ordering Physician: Belgica Agrawal Date of Service: 04/05/25 Procedure(s): XR Hand Bilat min 3v Accession Number(s): [id number] cc: Belgica Agrawal Reason for Exam: Arthalgia of bilat hand Exam: XR HAND 3 VIEWS BILATERAL, bilateral hand x-rays TECHNIQUE: AP, lateral, and oblique views upper extremity, bilateral hands INDICATION: Arthalgia of bilat hand COMPARISON: Right hand July 04, 2024 and left hand June 03, 2023 FINDINGS: RIGHT HAND: Bone mineral density is within normal limits. Joint spaces are preserved. No erosions are identified. There are no osteophytes. There is no joint diastases or malalignment. LEFT HAND: Bone mineral density is within normal limits. Joint spaces are preserved. No erosions are identified. There are no osteophytes. There is no joint diastases or malalignment. XR/XR Hand Bilat min 3v IMPRESSION: Right hand: Unremarkable right hand, stable Left hand: Unremarkable left hand, stable Electronically signed by: Joby Yi MD 04/07/2025 10:27 AM EST Dictated By: Joby Yi MD Signed By: <Electronically signed by Joby Yi MD in OV> 04/07/25 1027 DD/ 0940 TD/TT: 04/05/25 0947 Aging Department Supervisor: Belgica LYLESP IMG XR PROCEDURES Edited Resul t - Final * TSH with Reflex to Free T4 (04/05/2025 9:32 AM EST) TSH reflex Free T4 0.43 0.32 - 4.0 uIU/mL [facility] Blood 04/05/2025 9:32 AM EST 04/05/2025 9:32 AM EST Belgica LYLESP LAB BLOOD ORDERABLES Final Res ult [facility] [address] [place] [phone] * CBC auto differential (04/05/2025 9:32 AM EST) White Blood Count 7.2 4.8 - 10.8 X10*3/uL [facility] Red Blood Count 4.57 4.20 - 5.50 X10*6/uL [facility] Hemoglobin 14.8 12.0 - 16.0 g/dl [facility] Hematocrit 43.5 37.0 - 47.0 % [facility] Mean Corpuscular Volume 95.2 80.0 - 98.0 fL [facility] Mean Corpuscular Hemoglobin 32.4 27.0 - 33.0 pg [facility] Mean Corpuscular HGB Conc 34.0 31.0 - 35.0 g/dl [facility] Red Cell Distribution Width 12.8 11.0 - 16.0 % [facility] Platelet Count 275 160 - 400 X10*3/uL [facility] Mean Platelet Volume 10.7 9.4 - 12.3 fL [facility] Neutrophils Percent Auto 54.2 45 - 73 % [facility] Imm Gran Pct Auto 0.1 0.0 - 0.4 % [facility] Lymphocytes Percent Auto 34.2 20 - 40 % [facility] Monocytes Percent Auto 8.5 2 - 11 % [facility] Eosinophils Percent Auto 2.0 0 - 4 % [facility] Basophils Percent Auto 1.0 0 - 2 % [facility] NRBC Pct Auto 0.0 0.0 - 0.2 /100WBC [facility] Neutrophils Absolute Auto 3.9 2.0 - 8.3 x10*3/uL [facility] Imm Gran Abs Auto 0.01 0.00 - 0.03 X10*3/uL [facility] Lymphocytes Absolute Auto 2.5 1.2 - 4.9 X10*3/uL [facility] Monocytes Absolute Auto 0.6 0.1 - 1.2 X10*3/uL [facility] Eosinophils Absolute Auto 0.1 0.0 - 0.4 X10*3/uL [facility] Basophils Absolute Auto 0.1 0.0 - 0.2 X10*3/uL [facility] NRBC Abs Auto 0.000 0.0 - 0.012 X10*3/uL [facility] Blood Venous blood specimen / Unknown 04/05/2025 9:32 AM EST 04/05/2025 9:32 AM EST us Belgica Agrawal [employer] LAB BLOOD ORDERABLES Final Res ult [facility] [address] [place] [phone] * Hepatitis C Antibody with Reflex to HCV, RNA, Quantitative, Real-Time PCR (04/05/2025 9:32 AM EST) Hepatitis C Antibody Nonreactive Nonreactive [facility] Comment:Antibodies to HCV no t detected; does not exclude early acuteHCV infection. Blood Venous blood specimen / Unknown 04/05/2025 9:32 AM EST 04/05/2025 9:32 AM EST Belgica Agrawal [facility] BLOOD ORDERABLES Final Res ult Performing Organization Address [facility]/ZIP Co de Phone Number [facility] [address] [place] [address] [phone] * RPR (Monitor) with Reflex to??Titer (04/05/2025 9:32 AM EST) RPR (Monitor) w/Refl Titer NON-REACTI VE NON-REACT JANEE [facility] Comment:THIS TEST WAS PERFOR MED AT:[email or web address] [place] [phone] BURTON MD Rapid Plasma Reagin Ab Titer TNP [facility] Blood Venous blood specimen / Unknown 04/05/2025 9:32 AM EST 04/05/2025 9:32 AM EST Belgica Agrawal [facility] LAB BLOOD ORDERABLES Final Res ult Performing Organization Address [facility] Co de Phone Number [facility] [address] [place] [address] [phone] * HIV-1/2 Antigen and Antibodies, Fourth Generation, with Reflexes (04/05/2025 9:32 AM EST) HIV AB/AG Nonreactive Nonreactive [facility] Comment:HIV-1 p24 Ag and/or HIV-1/HIV-2 Ab not detected.A test result that is nonreactive does not exclude thepossibility of exposure to or infection with HIV-1 and/orHIV-2. Nonreactive results in this assay for individualswith prior exposure to HIV-1 and/or HIV-2 may be due toantigen and antibody levels that are below the limit ofdetection of this assay.The [employer] HIV Ag/Ab Combo assay result andsupplemental assay results should be interpreted inconjunction with the patient's clinical presentation,history and other laboratory results. If the results areinconsistent with clinical evidence, additional testing issuggested to confirm the result. Blood Venous blood specimen / Unknown 04/05/2025 9:32 AM EST 04/05/2025 9:32 AM EST Belgica Agrawal [employer] LAB BLOOD ORDERABLES Final Res ult Performing Organization Address [facility] Co de Phone Number [facility] [address] [place] [phone] * Hemoglobin A1c (04/05/2025 9:32 AM EST) Hemoglobin A1c 5.0 <6.0 % [facility] Comment:Hemoglobin A1C Refer ence Range Adults: 4.8 - 6.0 % Non diabetic: < 6.0 % Goal: < 7.0 %Additional Action Suggested: > 8.0 %Note: Hemoglobin A1c results are invalid for patients with abnormal amounts of HbF. Blood transfusions may impact the HbA1c concentration in the patient sample. Estimated Average Glucose 97 mg/dL [facility] Comment:eAG = Estimated ave rage glucose which is %A1C expressed asaverage glucose, using the formula of the H1S-PjaabpiLwfekur Glucose study (ADAG), Diabetes Care, Vol.31,#8,Nov. 2007 Blood Venous blood specimen / Unknown 04/05/2025 9:32 AM EST 04/05/2025 9:32 AM EST us Belgica Agrawal [facility] LAB BLOOD ORDERABLES Final Res ult Performing Organization Address [facility] Co de Phone Number [facility] [address] [place] [phone] * (ABNORMAL) Lipid Panel, Standard (04/05/2025 9:32 AM EST) Triglycerides 69 <150 mg/dL [facility] Comment:Desirable Triglyceri de: less than 150 mg/dLBorderline High Triglyceride 150-199 mg/dLHigh Triglyceride: 200-499 mg/dLVery High Triglyceride: greater than or equal to 5OO mg/dL Cholesterol 161 <200 mg/dL [facility] Comment:Desirable Cholestero l: less than 200 mg/dLBorderline High Cholesterol: 200-239 mg/dLHigh Cholesterol: greater than 239 mg/dL LDL Cholesterol Calculated 100(H) <100 mg/dL [facility] Comment:Desirable LDL: less than 100 mg/dLNear Optimal/Above Optimal LDL: 110- 129 mg/dLBorderline High LDL: 130-159 mg/dLHigh LDL: 160-189 mg/dLVery High LDL: greater than or equal to 190 mg/dL HDL Cholesterol 48 >40 mg/dL [facility] Comment:Desirable HDL: great er than 40 mg/dL Note: This HDL assay may give artificially low results in patients with liver disease. Blood Venous blood specimen / Unknown 04/05/2025 9:32 AM EST 04/05/2025 9:32 AM EST us Belgica Agrawal [employer] LAB BLOOD ORDERABLES Final Res ult [facility] [address] [place] [address] [phone] * Comprehensive Metabolic Panel (04/05/2025 9:32 AM EST) Sodium 141 135 - 145 mmol/L [facility] Potassium 4.4 3.3 - 5.1 mmol/L [facility] Chloride 108 96 - 108 mmol/L [facility] Carbon Dioxide 25 22 - 29 mmol/L [facility] Anion Gap 12 - 20 [facility] Urea Nitrogen (BUN) 13 9 - 16 mg/dL [facility] Creatinine, Serum 0.72 0.5 - 1.4 mg/dL [facility] Estimated Glomerular Filt Rate >60 [facility] Comment:Chronic Kidney Disea se: Estimated GFR < 60 mL/min/[id number] Kidney Disease: Estimated GFR < 15 mL/min/1.73m2 Glucose 82 60 - 115 mg/dL [facility] Calcium 9.2 8.4 - 10.2 mg/dL [facility] Bilirubin, Total 0.4 0.0 - 1.0 mg/dL [facility] Aspartate Amino Transferase 17 5 - 31 U/L [facility] Alanine Aminotransferase 8 0 - 31 U/L [facility] Total Protein 6.9 6.5 - 8.0 g/dL [facility] Albumin Level 4.2 3.5 - 5.0 g/dL [facility] Alkaline Phosphatase 71 39 - 117 U/L [facility] Blood Venous blood specimen / Unknown 04/05/2025 9:32 AM EST 04/05/2025 9:32 AM EST us Belgica Agrawal [employer] LAB BLOOD ORDERABLES Final Res ult [facility] [address] [place] [phone] * Chlamydia/Trichomonas/Neisseria gonorrhoeae, PCR, Urine (04/05/2025 9:28 AM EST) CT PCR, Urine NOT DETECTED Not Detect. [facility] Comment:A not detected test result does not exclude the possibilityof infection because test results can be affected byimproper specimen collection, concurrent antibiotic therapy,or the number of organisms in the specimen which may bebelow the sensitivity of the test. As with many diagnostictests, results from the Xpert CT/NG assay should beinterpreted in conjunction with other laboratory andclinical data available to the clinician.The Xpert CT/NG assay should not be used for the evaluationof suspected sexual abuse or for other medico-legalindications. Additional testing is recommended in anycircumstance when false positive or false negative resultscould lead to adverse medical, social or psychologicalconsequences. NG PCR, Urine NOT DETECTED Not Detect. [facility] Comment:A not detected test result does not exclude the possibilityof infection because test results can be affected byimproper specimen collection, concurrent antibiotic therapy,or the number of organisms in the specimen which may bebelow the sensitivity of the test. As with many diagnostictests, results from the Xpert CT/NG assay should beinterpreted in conjunction with other laboratory andclinical data available to the clinician.The Xpert CT/NG assay should not be used for the evaluationof suspected sexual abuse or for other medico-legalindications. Additional testing is recommended in anycircumstance when false positive or false negative resultscould lead to adverse medical, social or psychologicalconsequences. Urine (Urine, Random) 04/05/2025 9:28 AM EST 04/05/2025 10:04 AM EST Belgica Agrawal [facility] URINE ORDERABLES Final Res ult Performing Organization Address [facility] [facility] Co de Phone Number [facility] [address] [place] [phone] * Culture, Urine, Routine (01/29/2025 11:29 AM EDT) Urine Urine specimen obtained by clean catch procedure / Unknown 01/29/2025 11:29 AM EDT 01/29/2025 6:45 PM EDT Comment:[facility]ACC Narrative [facility] - 01/31/2025 11:48 AM EDT Strep agalactiae (Grp B) Quant 10,000 to 50,000 cfu/mL Susc N/A Susceptibility not routinely performed on this isolate. Specimen Source: Urine clean catch us Celia Greenberg MD LAB MICROBIOLOGY - [facility] ORDERABLES Final Result Performing Organization Address [facility] Co de Phone Number [facility] [address] [place] [phone] * POCT Urinalysis (01/29/2025 11:10 AM [...] Media Lot # [id number] Lot# Expiration Date 82 Urine (Urine, Random) 01/29/2025 11:10 AM EDT Celia Greenberg MD POINT OF CARE TEST EN TER/EDIT ORDERABLES Final Result * (ABNORMAL) Bacterial Vaginosis Panel (01/29/2025 10:57 AM EDT) TRICHOMONAS VAGINALIS DETECTION BY PCR NOT DETECTED Not Detect [facility] BACTERIAL VAGINOSIS DETECTION BY PCR POSITIVE(A) Negative [facility] Comment:The BV organism targ ets of [...] DETECTION BY PCR NOT DETECTED Not Detect [facility] Tonya glab krusei PCR NOT DETECTED Not Detect [facility] Swab Vaginal structure / Unknown 01/29/2025 10:57 AM EDT 01/29/2025 6:58 PM EDT Celia Greenberg MD LAB MICROBIOLOGY - [facility] ORDERABLES Final Result [facility] [address] [place] [address] [phone] * Chlamydia/N. Gonorrhoeae RNA, TMA, Vaginal (01/29/2025 10:57 AM EDT) CT PCR NOT DETECTED Not Detect. [facility] Comment:A not detected test result does [...] psychologicalconsequences. NG PCR NOT DETECTED Not Detect. [facility] Comment:A not detected test result does [...] 10:57 AM EDT 01/29/2025 6:58 PM EDT us Celia Greenberg MD LAB MICROBIOLOGY - [facility] ORDERABLES Final Result [facility] [address] [place] [phone] * Thinprep TIS PAP And HPV mRNA E6/E7 With Reflex To HPV 16,18/45 (09/29/2022 4:00 PM EDT) Clinical Information: 27 Y/O F ROUTINE PAP [facility] LMP: NONE GIVEN [facility] Prev. PAP: NONE GIVEN [facility] Prev. BX: NO [facility] SOURCE: None given [facility] [employer] Statement Of Adequacy: [facility] Comment: Satisfactory for evaluation. Endocervical/transformation zone component present. Interpretation/ Result: Negative for intraepithelial lesion or malignancy. [facility] Infection Shift in vaginal carlos manuel suggestive of bacterial vaginosis. [facility] Comment: This Pap test has been evaluated with computer assisted technology. [facility] [place] [employer]: [facility] Comment: NARANJO, CT(ASCP) CT screening location: [address] [phone] (Always Message) [facility] Comment: EXPLANATORY NOTE: The Pap is a [...] HPV nRNA E6/E7 Not Detected Not Detected [facility] Comment: Methodology: Retail Maintenance Technician-Mediated Amplification This assay detects E6/E7 viral messenger RNA (mRNA) from 14 high-risk HPV types (16,18,31,33,35,39,45,51,52,56,58,59,66,68). Cervical sources are required for HPV testing. If a vaginal source from a patient who has had a total hysterectomy with removal of cervix was submitted, please contact the testing laboratory for alternative testing options. For additional information, please refer to http://education.[employer]/faq/GAQ022k8 (This link if provided for information/ educational purposes only.) Genital 09/29/2022 4:00 PM EDT 09/30/2022 2:53 AM EDT [facility] ORDERABLES Final Result [employer] [address] [place] [address], [place] [phone] [facility] [phone] from Last 3 Months or Most Recently Relevant to Health Maintenance Insurance [facility] C3 Care Teams Production Clerk Relationship Specialty Start Date End Date [facility] Agrawal FNP [address] [place] [address] UDAY Proctor [id number] PCP - General Family Medicine 12/13/21
== END ==
LOC: HO.CARD 11:01
PROVIDERS: PCP Registered Nurse; Visit Provider Registered Nurse
DX: R00.2 Palpitations (principal)
CPT/HCPCS: 93225

== ENCOUNTER → 2025-04-15 11:05 | Outpatient (BNV) | payer MEDICAID, SELFPAY | PROVIDERS: PCP Registered Nurse; Visit Provider Internal Medicine Cardiovascular Disease | DX: R00.2 Palpitations (principal) | CPT/HCPCS: 93227 ==